=== PATIENT | male | born 1970 | race Caucasian/White ===

== ENCOUNTER 2016-04-23 13:55 | Emergency (ER) | payer BC ==
[2016-04-23 14:24] VITALS: BP 162/106
[2016-04-23] MEDS ORDERED: Albuterol/Ipratropium NEB.SOL* Albuterol 2.5 MG/Ipratropium 0.5 MG 3 ML INH ONE (15:01)
--- NOTE | 2016-04-23 15:29 | RAD ---
INDICATION: Cough for one month. COMPARISON: Comparison is made with a prior chest x-ray study from December 31, 2009. TECHNIQUE: Dual-energy PA and lateral views of the chest were obtained. FINDINGS: The heart is within normal limits in size. Mediastinal and hilar contours appear within normal limits. The lungs are clear. No pleural effusion is present. IMPRESSION: NO EVIDENCE FOR ACTIVE CARDIOPULMONARY DISEASE.
--- NOTE | 2016-04-23 15:38 | UC ---
Respiratory Complaint HPI - HPI Summary HPI Summary: 46 male presents today with daughter complaining of a cough that he has had for the past month. Patient states he has had a productive cough that he can't seem to get rid of. It gets worse when laying down. He denies any hemoptysis. He states he would produce green to yellow colored sputum however lately it has been clear. He states he sometimes has cold sweats during the night but has not taken his temperature. He admits to nasal congestion with some sinus pressure/ congestion however denies sore throat, headache, SOB, difficulty breathing, headache, and chest pain. Does state he loses his voice intermittently and describes it to be "raspy" in sound. 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 He has tried taking NyQuil and Mucinex OTC which he states helps him sleep. Denies edema. - History of Current Complaint Chief Complaint: UCRespiratory Stated Complaint: COUGH,SORE THROAT Time Seen by Provider: 04/23/16 14:40 Hx Obtained From: Patient Onset/Duration: Sudden Onset, Lasting Weeks, Still Present Timing: Constant - with episodes worse than others Severity Initially: Mild Severity Currently: Mild Character: Sputum Description: - green to yellow to clear in color Aggravating Factors: Exertion, Recumbent Position Alleviating Factors: OTC Meds, Upright Position Associated Signs And Symptoms: Positive: Fever, Chills, URI, Nasal Congestion, Sinus Discomfort. Negative: Dyspnea, Wheezing, Hemoptysis, Calf Pain, Calf Swelling, Edema - Allergies/Home Medications Allergies/Adverse Reactions: Allergies Allergy/AdvReac Type Severity Reaction Status Date / Time No Known Allergies Allergy Verified 04/23/16 14:18 Home Medications: Home Medications Ascorbic Acid TAB* [Vitamin C TAB*] 1,000 mg PO DAILY 04/23/16 [History Confirmed 04/23/16] PMH/Surg Hx/FS Hx/Imm Hx Previously Healthy: Yes Endocrine History Of: Denies: Diabetes Cardiovascular History Of: Denies: Hypertension, Congestive Heart Failure GI/ History Of: Denies: Renal Disease - Surgical History Surgical History: None - Family History Known Family History: Positive: Hypertension - Social History Alcohol Use: Occasionally Alcohol Amount: 2 beers daily Substance Use Type: Excessive Caffeine Smoking Status (MU): Light Every Day Tobacco Smoker Type: Cigarettes Amount Used/How Often: 6-7daily Length of Time of Smoking/Using Tobacco: 5 years Review of Systems Constitutional: Fever, Chills, Fatigue Skin: Negative Eyes: Negative ENT: Nasal Discharge Respiratory: Cough Cardiovascular: Negative Gastrointestinal: Negative Genitourinary: Negative Motor: Negative Neurovascular: Negative Musculoskeletal: Negative Neurological: Negative Psychological: Negative All Other Systems Reviewed And Are Negative: Yes Physical Exam Triage Information Reviewed: Yes Appearance: Well-Appearing - appears fatigued, No Pain Distress, Well-Nourished Vital Signs: Initial Vital Signs Temp 97.2 F 04/23/16 14:19 Pulse 78 04/23/16 14:19 Resp 18 04/23/16 14:19 BP 162/106 04/23/16 14:19 Pulse Ox 97 04/23/16 14:19 Blood pressure slightly elevated, patient says it usually is around that and is having it followed up Vital Signs Reviewed: Yes Eyes: Positive: Conjunctiva Clear ENT: Positive: Hearing grossly normal, Pharynx normal, Nasal congestion, Nasal drainage, TMs normal, Muffled/hoarse voice - sounds raspy and sometimes looses voice while speaking. Negative: Tonsillar swelling, Tonsillar exudate Dental: Positive: Gross Decay/Caries @ Neck: Positive: Supple, Nontender, No Lymphadenopathy Respiratory: Positive: Chest non-tender, Lungs clear - productive cough during exam, No respiratory distress, No accessory muscle use, Decreased breath sounds - left side more than right. Negative: Crackles, Rhonchi, Stridor, Wheezing Cardiovascular: Positive: RRR, No Murmur, Pulses Normal, Brisk Capillary Refill Abdominal Exam: Normal Musculoskeletal Exam: Normal Musculoskeletal: Positive: No Edema Neurological Exam: Normal Psychological Exam: Normal Skin Exam: Normal UC Diagnostic Evaluation - Laboratory O2 Sat by Pulse Oximetry: 97 - Radiology Xray Interpretation: No Acute Changes - NO EVIDENCE FOR ACTIVE CARDIOPULMONARY DISEASE. Radiology Interpretation Completed By: Radiologist Re-Evaluation - Re-Evaluation First Eval Re-Evaluation Time: 15:35 Change: Improved - some relief after nebulizer treatment Respiratory Course/Dx - Course Course Of Treatment: a chest x-ray was ordered due to duration of symptoms and exposure to asbestosis and other airborne materials at work. it was negative. patient was given a nebulizer treatment which did give him some relief and breath sounds improved slightly. patient will be given an antibiotic to see if it helps relieve infection. he was also given albuterol refills to use with his nebulizer machine at home told to continue taking OTC measures and to try saline rinses. follow up with PCP is recommended. - Differential Dx/Diagnosis Differential Diagnosis/HQI/PQRI: Bronchitis, CHF, Laryngitis, Sinusitis, Other - upper respiratory infection, pneumonia Provider Diagnoses: Upper Respiratory Infection, Bronchitis Discharge - Discharge Plan Condition: Stable Disposition: HOME Prescriptions: Albuterol 2.5MG/3ML (0.083%)* [Ventolin 2.5 MG/3 ML NEB.CE*] 2.5 mg INH Q6H # 30 sunny Azithromycin TAB* [Zithromax TAB (Z-SUNNY) 250 mg #6 tabs] 2 tab PO .TODAY, THEN 1 DAILY #1 sunny Patient Education Materials: Upper Respiratory Infection (ED), Acute Bronchitis (ED) Referrals: Freddie Griffin ASSISTANT ASSOCIATE FULL PROFESSOR [Primary Care Provider] -
== END 2016-04-23 15:54 | disposition home or self-care (01) ==
LOC: UCCORT 13:55
DX: R06.9 Unspecified abnormalities of breathing (principal); J40 Bronchitis, not specified as acute or chronic; F17.210 Nicotine dependence, cigarettes, uncomplicated
CPT/HCPCS: 71020; 99212; A9270-GY; G0463

== ENCOUNTER 2017-03-09 13:25 | Observation (INO) | payer BC ==
[2017-03-09 15:33] LABS: Hematocrit 48 % (42-52); Hemoglobin 16.2 g/dl (14.0-18.0); Mean Corpuscular HGB Conc 34 g/dl (31-36); Mean Corpuscular Hemoglobin 30 pg (27-31); Mean Corpuscular Volume 89 fL (80-94); Mean Platelet Volume 8 um3 (7.4-10.4); Red Blood Count 5.37 10^6/ul (4.0-5.4); Red Cell Distribution Width 14 % (10.5-15); White Blood Count 10.8 10^3/ul (3.5-10.8)
[2017-03-09 15:51] LABS: Albumin 4.4 g/dL (3.2-5.2); Calcium 9.4 mg/dL (8.6-10.3); EGFR African American 86.9 (>60); EGFR Non-African American 67.6 (>60); Globulin 2.9 g/dL (2-4); Magnesium 2.2 mg/dL (1.9-2.7); Potassium 4.5 mmol/L (3.5-5.0); Total Bilirubin 0.5 mg/dL (0.2-1.0); Total Protein 7.3 g/dL (6.4-8.9)
[2017-03-09 15:53] LABS: Troponin I 0.01 ng/mL (<0.04)
[2017-03-09 16:31] LABS: TSH (Thyroid Stimulating Horm) 0.78 mcIU/mL (0.34-5.60)
[2017-03-09] MEDS ORDERED: HYDROcodone/ACETAMIN 5-325 MG* 1 TAB PO ONE (16:57)
--- NOTE | 2017-03-09 17:49 | RAD ---
Indication: Fall with dorsal LEFT foot pain. Comparison: No relevant prior exams available on [place] [facility] [place]. Technique: AP, lateral, and oblique views LEFT foot. Report: Significant repetitive pattern artifact from the patient's sock. Negative for fracture or malalignment. Small subchondral cysts noted at the medial head of the first proximal phalanx. Unremarkable soft tissue contours. IMPRESSION: No fracture or malalignment evident. Artifact from the patient's sock reduces image quality. Correlate with clinical assessment and consider repeat exam with sock moved deemed appropriate.
--- NOTE | 2017-03-09 17:51 | RAD ---
INDICATION: RIGHT elbow pain following injury. COMPARISON: No relevant prior exams available on the [facility] PACS for comparison. TECHNIQUE: AP, lateral, and oblique views RIGHT elbow. REPORT AND IMPRESSION: Normal articular alignment. Negative for effusion or fracture. Mild dorsal soft tissue swelling.
[2017-03-09 18:21] LABS: Urine Bilirubin Negative (Negative); Urine Glucose Negative (Negative); Urine Nitrite Negative (Negative)
[2017-03-09] MEDS ORDERED: Ondansetron INJ* 2 MG/ML VIAL IV PRN (20:13)
[2017-03-09] MEDS ORDERED: Acetaminophen TAB* 325 MG PO PRN (20:13)
--- NOTE | 2017-03-09 20:55 | RAD ---
Indication: Seizure yesterday. History of syncopal episodes. Comparison: No relevant prior exams available on the [facility] PACS for comparison. Technique: Noncontrast CT vertex of skull through foramen magnum. Report: The sulci, ventricles, and basal cisterns are normal for age. [place] matter white matter differentiation is preserved without evidence for edema. No intra or extra axial hemorrhage, mass, or fluid collection detected. Unremarkable visualized orbital contents. Unremarkable calvarium and skull base. Unremarkable scalp. Mild retained secretions in the RIGHT maxillary sinus. IMPRESSION: Negative unenhanced head CT.
--- NOTE | 2017-03-09 21:09 | RAD ---
INDICATION: Seizure. COMPARISON: September 15, 2012 TECHNIQUE: Multidetector CT images foramen magnum to lung apices without contrast. Multiplanar reformation. REPORT: Normal vertebral alignment accounting for exam positioning without spondylolisthesis or subluxation at any level. Negative for cervical vertebral body or posterior element fracture. Negative for paravertebral hematoma. Multilevel degenerative spondylosis and mild facet joint osteoarthritis. At C5-C6 uncinate process spurring results in moderate bilateral foraminal stenosis. At C6-C7 dorsal disc osteophyte complex results in mild acquired central canal stenosis. IMPRESSION: No CT evidence for traumatic cervical spine injury.
--- NOTE | 2017-03-09 21:13 | RAD ---
Indication: Syncopal episode. Associated LEFT ankle injury; caught in a stool. Comparison: No relevant prior exams available on the [facility] PACS for comparison. Technique: AP and crosstable lateral views LEFT ankle. Report: Normal alignment at the talocrural, subtalar, and transverse tarsal joints. No malleoli fracture evident. Unexplained coronal oriented lucency at the proximal metaphysis of the third metatarsal reference the lateral view. Mild nonfocal soft tissue swelling. IMPRESSION: 1. Negative for fracture or malalignment about the ankle. 2. Unexplained coronal lucency at the proximal metaphysis of the third metatarsal. Correlate with clinical assessment and consider radiographs of the foot for further evaluation if deemed appropriate.
--- NOTE | 2017-03-09 21:55 | ED ---
Rosa Godinez Gabriel scribed for Anshu Young MD on 03/09/17 at 1459 . Neurological HPI - HPI Summary HPI Summary: This patient is a 47 year old M presenting to [facility] s/p a seizure last night. The patient rates the pain 6/10 in severity. Patient reports contusion on head, and foot/elbow pain. Patient was at a bar siting on a stool when he had a seizure. He did not feel in coming on nor does he remember anything but his friend saw it and reported seeing him thrash. Patient is unable to bear weight due to the pain on the top of his left foot. He reports similar episodes a year ago that didnt include any thrashing so he did not see a doctor. - History of Current Complaint Chief Complaint: EDSeizure Stated Complaint: SEIZURE 03/08-PAIN IN LT FOOT & RT ELBOW Time Seen by Provider: 03/09/17 14:35 Hx Obtained From: Patient Onset/Duration: Sudden Onset, Resolved Timing: Sudden Onset Onset Severity: Moderate Current Severity: None Seizure Severity: Moderate Number of Seizures: 1 Pain Intensity: 6 Pain Scale Used: 0-10 Numeric Syncope Context: Witnessed Associated Signs and Symptoms: Positive: Nothing - foot pain, elbow pain, contusion - Allergy/Home Medications Allergies/Adverse Reactions: Allergies Allergy/AdvReac Type Severity Reaction Status Date / Time No Known Allergies Allergy Verified 04/23/16 14:18 PMH/Surg Hx/FS Hx/Imm Hx Previously Healthy: No Endocrine/Hematology History: Denies: Hx Diabetes, Hx Systemic Lupus Erythematosus Cardiovascular History: Denies: Hx Congestive Heart Failure, Hx Hypertension History: Denies: Hx Dialysis, Hx Renal Disease Musculoskeletal History: Denies: Hx Rheumatoid Arthritis - Cancer History Hx Chemotherapy: No Infectious Disease History: No Infectious Disease History: Denies: Traveled Outside the [place] in Last 30 Days - Family History Known Family History: Positive: Hypertension - Social History Alcohol Use: Daily Alcohol Amount: 2 beers daily Substance Use Type: Reports: None Smoking Status (MU): Light Every Day Tobacco Smoker Type: Cigarettes Amount Used/How Often: 6-7daily Length of Time of Smoking/Using Tobacco: 5 years Review of Systems Positive: Other - pain in left elbow and top of right foot w/ contusion on head Neurological: Other - seizure All Other Systems Reviewed And Are Negative: Yes Physical Exam - Summary Physical Exam Summary: Appearance: The patient is well-nourished in no acute distress and in no acute pain. Skin: The skin is warm and dry and skin color reflects adequate perfusion. HEENT: The head is normocephalic and atraumatic. The pupils are equal and reactive. The conjunctivae are clear and without drainage. Nares are patent and without drainage. Mouth reveals moist mucous membranes and the throat is without erythema and exudate. The external ears are intact. The ear canals are patent and without drainage. The tympanic membranes are intact. Neck: the neck is supple with full range of motion and non-tender. There are no carotid bruits. There is no neck vein distension. Respiratory: Chest is non-tender. Lungs are clear to auscultation and breath sounds are symmetrical and equal. Cardiovascular: Heart is regular rate and rhythm. There is no murmur or rub auscultated. There is no peripheral edema and pulses are symmetrical and equal. Abdomen: The abdomen is soft and non-tender. There are normal bowel sounds heard in all four quadrants and there is no organomegaly palpated. Musculoskeletal: There is no back tenderness noted. Extremities are non-tender with full range of motion. There is good capillary refill. There is no peripheral edema or calf tenderness elicited. Right elbow is mildly erythematous and tender. Right foot is tender distally on the dorsum Neurological: Patient is alert and oriented to person, place and time. The patient has symmetrical motor strength in all four extremities. Cranial nerves are grossly intact. Deep tendon reflexes are symmetrical and equal in all four extremities. Psychiatric: The patient has an appropriate affect and does not exhibit any anxiety or depression. Triage Information Reviewed: Yes Vital Signs On Initial Exam: Initial Vitals Temp Pulse Resp BP Pulse Ox 98.6 F 110 16 121/77 92 03/09/17 13:26 03/09/17 13:26 03/09/17 13:26 03/09/17 13:26 03/09/17 13:26 Vital Signs Reviewed: Yes Diagnostics - Vital Signs Vital Signs Temp Pulse Resp BP Pulse Ox 03/09/17 13:26 98.6 F 110 16 121/77 92 - Laboratory Lab Results: Lab Results 03/09/17 03/09/17 03/09/17 Range/Units 15:20 15:20 15:20 WBC 10.8 (3.5-10.8) 10^3/ul RBC 5.37 (4.0-5.4) 10^6/ul Hgb 16.2 (14.0-18.0) g/dl Hct 48 (42-52) % MCV 89 (80-94) fL MCH 30 (27-31) pg MCHC 34 (31-36) g/dl RDW 14 (10.5-15) % Plt Count 281 (150-450) 10^3/ul MPV 8 (7.4-10.4) um3 Neut % (Auto) 73.1 (38-83) % Lymph % (Auto) 17.3 L (25-47) % Emmons % (Auto) 8.6 (1-9) % Eos % (Auto) 0.6 (0-6) % Baso % (Auto) 0.4 (0-2) % Absolute Neuts (auto) 7.9 H (1.5-7.7) 10^3/ul Absolute Lymphs (auto) 1.9 (1.0-4.8) 10^3/ul Absolute Monos (auto) 0.9 H (0-0.8) 10^3/ul Absolute Eos (auto) 0.1 (0-0.6) 10^3/ul Absolute Basos (auto) 0 (0-0.2) 10^3/ul Absolute Nucleated RBC 0.02 10^3/ul Nucleated RBC % 0.2 Sodium 141 (133-145) mmol/L Potassium 4.5 (3.5-5.0) mmol/L Chloride 104 (101-111) mmol/L Carbon Dioxide 28 (22-32) mmol/L Anion Gap 9 (2-11) mmol/L BUN 15 (6-24) mg/dL Creatinine 1.15 (0.67-1.17) mg/dL Est GFR ( Amer) 86.9 (>60) Est GFR (Non-Af Amer) 67.6 (>60) BUN/Creatinine Ratio 13.0 (8-20) Glucose 97 (70-100) mg/dL Lactic Acid 2.1 H* (0.5-2.0) mmol/L Calcium 9.4 (8.6-10.3) mg/dL Magnesium 2.2 (1.9-2.7) mg/dL Total Bilirubin 0.50 (0.2-1.0) mg/dL AST 19 (13-39) U/L ALT 30 (7-52) U/L Alkaline Phosphatase 41 (34-104) U/L Troponin I 0.01 (<0.04) ng/mL Total Protein 7.3 (6.4-8.9) g/dL Albumin 4.4 (3.2-5.2) g/dL Globulin 2.9 (2-4) g/dL Albumin/Globulin Ratio 1.5 (1-3) TSH 0.78 (0.34-5.60) mcIU/mL Urine Color Urine Appearance Urine pH (5-9) Ur Specific [place] (1.010-1.030) Urine Protein (Negative) Urine Ketones (Negative) Urine Blood (Negative) Urine Nitrate (Negative) Urine Bilirubin (Negative) Urine Urobilinogen (Negative) Ur Leukocyte Esterase (Negative) Urine Glucose (Negative) Serum Alcohol 46 H (<10) mg/dL 03/09/17 Range/Units 17:55 WBC (3.5-10.8) 10^3/ul RBC (4.0-5.4) 10^6/ul Hgb (14.0-18.0) g/dl Hct (42-52) % MCV (80-94) fL MCH (27-31) pg MCHC (31-36) g/dl RDW (10.5-15) % Plt Count (150-450) 10^3/ul MPV (7.4-10.4) um3 Neut % (Auto) (38-83) % Lymph % (Auto) (25-47) % Emmons % (Auto) (1-9) % Eos % (Auto) (0-6) % Baso % (Auto) (0-2) % Absolute Neuts (auto) (1.5-7.7) 10^3/ul Absolute Lymphs (auto) (1.0-4.8) 10^3/ul Absolute Monos (auto) (0-0.8) 10^3/ul Absolute Eos (auto) (0-0.6) 10^3/ul Absolute Basos (auto) (0-0.2) 10^3/ul Absolute Nucleated RBC 10^3/ul Nucleated RBC % Sodium (133-145) mmol/L Potassium (3.5-5.0) mmol/L Chloride (101-111) mmol/L Carbon Dioxide (22-32) mmol/L Anion Gap (2-11) mmol/L BUN (6-24) mg/dL Creatinine (0.67-1.17) mg/dL Est GFR ( Amer) (>60) Est GFR (Non-Af Amer) (>60) BUN/Creatinine Ratio (8-20) Glucose (70-100) mg/dL Lactic Acid (0.5-2.0) mmol/L Calcium (8.6-10.3) mg/dL Magnesium (1.9-2.7) mg/dL Total Bilirubin (0.2-1.0) mg/dL AST (13-39) U/L ALT (7-52) U/L Alkaline Phosphatase (34-104) U/L Troponin I (<0.04) ng/mL Total Protein (6.4-8.9) g/dL Albumin (3.2-5.2) g/dL Globulin (2-4) g/dL Albumin/Globulin Ratio (1-3) TSH (0.34-5.60) mcIU/mL Urine Color Yellow Urine Appearance Clear Urine pH 5.0 (5-9) Ur Specific [place] 1.019 (1.010-1.030) Urine Protein Negative (Negative) Urine Ketones Trace H (Negative) Urine Blood Negative (Negative) Urine Nitrate Negative (Negative) Urine Bilirubin Negative (Negative) Urine Urobilinogen Negative (Negative) Ur Leukocyte Esterase Negative (Negative) Urine Glucose Negative (Negative) Serum Alcohol (<10) mg/dL Result Diagrams: 03/09/17 15:20 03/09/17 15:20 Lab Statement: Any lab studies that have been ordered have been reviewed, and results considered in the medical decision making process. - Radiology Foot Xray Radiology Interpretation Completed By: Radiologist - No fracture or malalignment evident. Artifact from the patient's sock reduces image quality. Correlate with clinical assessment and consider repeat exam with sock moved deemed appropriate. ED physician has reviewed this radiology report. Elbow Xray Radiology Interpretation Completed By: Radiologist - Normal articular alignment. Negative for effusion or fracture. Mild dorsal soft tissue swelling. 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 Harrell had a worrisome sounding episode that could be seizure or syncope with seizure-like activity. His W/U is negative so far and he is being admitted to the hospitalist service. - Diagnoses Provider Diagnoses: Syncope and collapse Discharge - Discharge Plan Condition: Stable Disposition: ADMITTED TO [facility] documentation as recorded by the Rosa merchant Gabriel accurately reflects the service I personally performed and the decisions made by , Anshu Young MD.
[2017-03-10] MEDS: NS 0.9% 1000 ML* 1,000 ML IV SCH ×2 (00:22→12:59)
--- NOTE | 2017-03-10 02:49 | HP ---
CC: Freddie Griffin NP * HISTORY AND PHYSICAL: DATE OF ADMISSION: 03/09/17 PRIMARY CARE PROVIDER: Freddie Griffin NP ATTENDING PHYSICIAN WHILE IN THE HOSPITAL: Dr. Kenny Skinner * (report dictated by Heriberto Vo NP) CHIEF COMPLAINT: Syncope. HISTORY OF PRESENT ILLNESS: Mr. Harrell is a 47-year-old male patient, who last night was at a bar. He had an episode where he was staring off. He was not talking, he was not responding. He started to have quivering in his lips and shaking in his lips and that shaking lasted about 30 seconds. However, for about 20 to 30 minutes thereafter, he was very confused. He does not know where he was. He does not recall anything. The last thing he recalls was getting into his friend's vehicle and going home and getting undressed and going to bed at night. He denied having any symptoms prior to it. He states the last thing he remembers is talking to his friend and he was sitting down and he fell backwards out of the chair. He denied having chest pain prior to or after. Denied having any palpitations or fluttering in the chest. Denied having any recent shortness of breath. He states he has been having some lower back pain that has been going on for several weeks now. He denied having any nausea or vomiting. No diarrhea. He denied any dysuria, no frequency. Again, there is question of seizure-like activity. He did not have any incontinence of urine or stool. He was concerned because of the episode today and he came in to the ER. Denied any drug use last night and he say he did have 8 to 10 beers. PAST MEDICAL HISTORY: Significant for hypertension. PAST SURGICAL HISTORY: Denied. MEDICATIONS: He says currently he is not on any medications. He has been off medications for the last 6 months. ALLERGIES: He is not allergic to any medications. FAMILY HISTORY: Mother's history was reviewed, noncontributory. He specifically denied the mother having any heart disease, strokes, or cancer. His father did have CAD. SOCIAL HISTORY: He does smoke occasionally when he is drinking. He says he drinks in the weekend. He did drink 8 to 10 beers last night. Denied any recreational drug use. He is a mon. REVIEW OF SYSTEMS: There is no documented fever. He denied having any significant weight change. There was no double vision. He denies having any ear discharge. He denies having any rhinorrhea. No sore throat. No thyroid enlargement. Denied having any chest pain. There was no orthopnea, no nocturnal dyspnea. There was no abdominal pain. No nausea. There was no vomiting. No dysuria, there was no frequency. There was a question of seizure and there was loss of consciousness. Review of 14 systems completed, all others negative. PHYSICAL EXAMINATION GENERAL: At this time, Mr. Harrell is a 47-year-old male patient. He is morbidly obese. He is sitting in the ED stretcher. He does not appear to be in any acute distress. VITAL SIGNS: Blood pressure 132/87, pulse 81, respirations 17, O2 sat 95%, temperature 98.6. HEENT: Head: Atraumatic. Eyes: EOMs intact. Sclerae anicteric, not pale. Throat: Oral mucosa appears to be moist. No oropharyngeal erythema. NECK: Supple. LUNGS: Clear to auscultation. No wheezes, rales, or rhonchi. HEART: Sounds S1, S2. Regular rate and rhythm. No murmurs, rubs, or gallops. ABDOMEN: Soft, flat, nontender. Bowel sounds are present. EXTREMITIES: Pulses were 2+ throughout. His left foot is painful on the top part of his foot and in the ankle with any type of manipulation of the ankle, he has significant amount of pain. He says that when he went down, his friends told him that his foot got caught in the bar rail when he went down. Distal CSM checks are intact. He is moving his upper extremities with 5/5 strength. NEUROLOGIC: The patient is awake, he is alert, he is oriented x3. His speech is clear. Tongue is midline. Charging Plug Placer are equal. No gross focal deficits. SKIN: Intact. DIAGNOSTIC STUDIES/LAB DATA: WBC 10.8, RBC of 5.37, hemoglobin of 16.2, hematocrit of 48, platelet count of 281. Sodium 141, potassium 4.5, chloride of 104, bicarb 28, BUN 15, creatinine 1.15, glucose 97, lactate 2.1, calcium 9.4 , mag 2.2. Total bili is 0.5, AST 19, ALT 30. His TSH was 0.78. Albumin of 4.4. Urine showed trace ketones. He had an elbow x-ray today, showed normal articular alignment, negative for fusion or fracture. He had a foot x-ray obtained today, showed no fracture or malalignment other than artifact from the patient's sock reduces image quality. Correlate with clinical assessment and consider repeat exam with socks removed deemed appropriate. He did have an EKG obtained today, no previous for comparison, does show a sinus rhythm, rate of 86, no ST elevations or T-wave inversions. He does appear to have intraventricular conduction delay. Old medical records were reviewed. ASSESSMENT AND PLAN: Mr. Harrell is a 47-year-old male patient coming into the ED today with complaints of a syncopal episode versus seizure. He will be admitted under observation status for: 1. Syncope versus seizure. At this point, I will get an echo. I did touch base with Dr. Neumann. We will get an EEG. Check a CT of the brain, CT of the neck because of the fall. Carotid ultrasound. We will get orthostatic blood pressures and place the patient on telemetry and do another set of cardiac enzymes since the first set was negative. We will continue to follow him closely. 2. Hypertension. Blood pressure is stable here. He can follow up with his primary. 3. Left ankle pain. He did get a foot x-ray, which showed no fracture. I am getting a dedicated ankle x-ray. If it becomes an issue, we could consider getting an Ortho consult, but it does appear that he may have a sprain, but I am going to get the images. If there are any fractures, obviously we will get Ortho consult. 4. DVT prophylaxis. He will be placed on SCDs. 5. Code status. Full code. 6. Fluids, electrolytes, and nutrition. He can have a regular diet. TIME SPENT: On the admission 60 minutes, greater than half the time spent face- to- face with the patient obtaining my history and physical, other half the time spent going over the plan of care with the patient and implementing plan of care. I did discuss plan of care with my attending, Dr. Skinner; he is in agreement. HERIBERTO VO NP [id number]/[facility] #: [id number] [facility] HOSPITALLeonel
[2017-03-10 05:07] LABS: Hematocrit 43 % (42-52); Hemoglobin 14.9 g/dl (14.0-18.0); Mean Corpuscular HGB Conc 35 g/dl (31-36); Mean Corpuscular Hemoglobin 31 pg (27-31); Mean Corpuscular Volume 89 fL (80-94); Mean Platelet Volume 8 um3 (7.4-10.4); Red Blood Count 4.85 10^6/ul (4.0-5.4); Red Cell Distribution Width 14 % (10.5-15); White Blood Count 8.5 10^3/ul (3.5-10.8)
[2017-03-10 05:27] LABS: BUN/Creatinine Ratio 17.8 (8-20); EGFR Non-African American 78.5 (>60)
[2017-03-10] MEDS: oxyCODONE/Acetamin 5/325 MG* TAB PO PRN ×2 (07:52→19:57)
--- NOTE | 2017-03-10 09:10 | RAD ---
Indication: Syncope. Duplex Doppler sonography of the carotid arteries was performed. Right common carotid artery demonstrates intimal wall thickening. No plaque is noted. Peak systolic velocity of the distal right common carotid arteries 86 cm/s. Peak systolic velocity of the right internal carotid artery is 98 cm/s. The ICA/CC ratio is 1.13. Right vertebral artery demonstrates antegrade flow. The left common carotid artery demonstrates intimal wall thickening. Peak systolic velocity of the distal left common carotid artery is 92 cm/s. Peak systolic velocity of the left internal carotid artery is 97 cm/s. The ICA/CC ratio is 1.06. Left vertebral artery demonstrates antegrade flow. IMPRESSION: No evidence of hemodynamically significant stenosis in either internal carotid artery with intimal wall thickening.
--- NOTE | 2017-03-10 11:08 | PN ---
Subjective Date of Service: 03/10/17 Interval History: Patient seen and examined at bedside. Patient states he does not normally drink as much as he did on Friday night. He reports that he fell off a bar stool witnessed by bystanders and had convulsions. Episode lasted ~20 minutes. Patient does not recall anything but being driven home later that evening my his friend. Family History: Unchanged from Admission Social History: Unchanged from Admission Past Medical History: Unchanged from Admission Objective Active Medications: Acetaminophen (Tylenol Tab*) 650 mg PO Q4H PRN Sodium Chloride (Ns 0.9% 1000 Ml*) 1,000 mls @ 125 mls/hr IV PER RATE EDISON Ondansetron HCl (Zofran Inj*) 4 mg IV Q6H PRN Oxycodone/Acetaminophen (Percocet 5/325 Tab*) 2 tab PO Q4H PRN Vital Signs Temp Pulse Resp BP Pulse Ox 98.3 F 75 16 136/90 95 03/10/17 07:53 03/10/17 07:53 03/10/17 08:00 03/10/17 07:53 03/10/17 07:53 Oxygen Devices in Use Now: None Appearance: sitting up in bed, NAD Eyes: No Scleral Icterus, PERRLA Ears/Nose/Mouth/Throat: NL Teeth, Lips, Gums Neck: NL Appearance and Movements; NL JVP Respiratory: Symmetrical Chest Expansion and Respiratory Effort Cardiovascular: NL Sounds; No Murmurs; No JVD, RRR Abdominal: NL Sounds; No Tenderness; No Distention Extremities: No Edema Skin: No Rash or Ulcers Neurological: Alert and Oriented x 3, NL Muscle Strength and Tone Lines/Tubes/Other Access: Clean, Dry and Intact Peripheral IV Result Diagrams: 03/10/17 04:56 03/10/17 04:56 Additional Lab and Data: . Assess/Plan/Problems-Billing Patient is a 47 y/o M w/ hx of HTN who presented to the ER 03/09 after a syncopal episode while intoxicated early in the AM 03/09. When he presented hours later PEARL was still 0.04%. He also c/o of L ankle pain. - Patient Problems (1) Syncope, convulsive Comment: Syncope vs seizure. The patient states he has an episode last year while coughing that sounds like a vagal episode. Carotid doppler negative. Echo and EEG pending but seems more likely this is secondary to alcohol intoxication. (2) Alcohol intoxication Comment: Suspect episode related to intoxication which is not typical for him. (3) Left ankle sprain Comment: Ankle and foot xray negative for any acute fracture. Continue PRN percocet and Ibuprofen. (4) HTN (hypertension) Comment: BP stable and controlled; Not on any medication. (5) DVT prophylaxis Comment: Low risk; SCDs only. (6) Full code status Status and Disposition: OBV for syncope vs seizure. Plan to discharge home when stable.
[2017-03-10] MEDS ORDERED: Ibuprofen TAB* 600 MG PO PRN (11:09)
--- NOTE | 2017-03-10 12:04 | ECHO ---
Patient: KARLO VICENTE [facility] Rec#: [id number] : 1970 Date: 03/10/2017 Age: 47y Height: 177.8 cm / 70.0 in Weight: 112.49 kg / 247.9 lbs Sex: M BSA: 2.29 Room#: 440 Admit Date#: 03/09/2017 Type: Inpatient Referring: Heriberto Vo NP Reading: Conner Ribeiro MD Circuit Manager: Liv Araya,DEEP,RDMS CC: Freddie Griffin NP Transthoracic Echocardiogram Indication: Syncope BP: 132/81 HR: 71 Rhythm: NSR Findings History: HTN Technical Comments: The study quality is good. The study is technically limited due to poor parasternal windows. Left Ventricle: The left ventricular chamber size is normal. Mild concentric left ventricular hypertrophy is observed. Global left ventricular wall motion and contractility are within normal limits. Left ventricular systolic function is at the lower limits of normal. The estimated ejection fraction is 50-55%. There is no consistent Doppler evidence of clinically significant diastolic dysfunction. Left Atrium: The left atrial chamber size is normal. Right Ventricle: The right ventricular chamber size and systolic function are within normal limits. Right Atrium: The right atrial cavity size is normal. Aortic Valve: There is no evidence of aortic valve thickening. Systolic excursion of the aortic valve is normal. There is a trace of aortic regurgitation. There is no evidence of aortic stenosis. Mitral Valve: The mitral valve leaflets are mildly thickened. There is a trace of mitral regurgitation. There is no evidence of mitral stenosis. Tricuspid Valve: The tricuspid valve leaflets are normal. There is trace tricuspid regurgitation. Pulmonic Valve: There is no evidence of pulmonic valve thickening. There is no evidence of pulmonic regurgitation. Pericardium: There is no significant pericardial effusion. Aorta: The ascending aorta is not well visualized. There is no dilatation of the aortic arch. There is mild dilatation of the aortic root. Pulmonary Artery: The main pulmonary artery is not well visualized. Venous: The inferior vena cava appears normal in size. There is a greater than 50% respiratory change in the inferior vena cava dimension. Conclusions Mild concentric left ventricular hypertrophy is observed. Global left ventricular wall motion and contractility are within normal limits. Left ventricular systolic function is at the lower limits of normal. The estimated ejection fraction is 50-55%. The right ventricular chamber size and systolic function are within normal limits. There is a trace of aortic regurgitation. There is a trace of mitral regurgitation. There is trace tricuspid regurgitation. There is no significant pericardial effusion. Measurements Name Value Normal Range RVIDd (AP) 2D 3.2 cm (0.9 - 2.6) RVDdMajor (2D) 3.4 cm (2.2 - 4.4) RAd ISD 4CH 4.6 cm (3.4 - 4.9) RA (A4C)W 3.6 cm (2.9 - 4.6) IVSd (2D) 1.3 cm (0.6 - 1) LVPWd (2D) 1 cm (0.6 - 1) LVIDd (2D) 4.7 cm (3.6 - 5.4) LVIDs (2D) 3.7 cm - LV FS (2D) 21 % (25 - 45) Aortic Annulus 2.3 cm (1.4 - 2.6) Ao root diameter (2D) 3.7 cm (2.1 - 3.5) Aortic arch 2.2 cm (1.8 - 3.4) LA dimension (AP) 2D 3.4 cm (2.3 - 3.8) LAd ISD 4CH 4.2 cm (2.9 - 5.3) LA ISD 4CH W 3.8 cm (2.5 - 4.5) Name Value Normal Range LA ESV SP 4CH (A/L) 33.92 ml - LA ESV SP 2CH (A/L) 52.77 ml - LA ESV BP (A/L) 47.87 ml - LA ESV BP (A/L) index 21 ml/m2 - LA ESV SP 4CH (MOD) 31.21 ml - LA ESV SP 2CH (MOD) 49.16 ml - Name Value Normal Range MV E-wave Vmax 0.8 m/sec - MV deceleration time 187 msec - MV A-wave Vmax 0.5 m/sec - MV E:A ratio 1.6 ratio - P. vein S-wave Vmax 0.4 m/sec - P. vein D-wave Vmax 0.4 m/sec - P. vein S:D Vmax ratio 1.1 ratio - P. vein A-wave duration 90 msec - LV septal e' Vmax 0.08 m/sec - LV lateral e' Vmax 0.11 m/sec - LV E:e' septal ratio 10 ratio - LV E:e' lateral ratio 7.3 ratio - Name Value Normal Range AV Vmax 1.4 m/sec - AV VTI 29.3 cm - AV peak gradient 8 mmHg - AV mean gradient 5.1 mmHg - LVOT Vmax 1.2 m/sec - LVOT VTI 24.8 cm - LVOT peak gradient 6 mmHg - LVOT mean gradient 2.9 mmHg - TRISHA Vmax 0.7 m/sec - Name Value Normal Range RAP 8 mmHg - IVC diameter 1.6 cm - Name Value Normal Range PV Vmax 0.7 m/sec - PV peak gradient 2 mmHg -
--- NOTE | 2017-03-10 17:51 | RAD ---
HISTORY: Left foot pain COMPARISONS: March 09, 2017 VIEWS: 4, Frontal, lateral, and oblique views of the left foot FINDINGS: BONE DENSITY: Normal. BONES: There is a transverse nondisplaced fracture of the base of the third metatarsal with articular extension. The Lisfranc interval is normal. JOINTS: There is mild osteoarthritis of the first MTP joint ALIGNMENT: There is no dislocation. SOFT TISSUES: Unremarkable. OTHER FINDINGS: None. IMPRESSION: 1. NONDISPLACED FRACTURE OF THE BASE OF THE THIRD METATARSAL. 2. OSTEOARTHRITIS OF THE FIRST MTP JOINT
--- NOTE | 2017-03-10 18:16 | PN ---
Hospitalist Progress Note Date of Service: 03/10/17 HOSPITALIST ADDENDUM: Reviewed Foot xray and given lucency seen on ankle X-ray and poor intial foot X- ray, Foot X-ray redone. 3rd metatarsal fracture seen. Discussed case with Dr. Sanchez on-call who recommended CAM boot, partial weight bearing, and f/u in 7- 10 days. CAM boot to be obtained this evening and discharge planned for AM.
--- NOTE | 2017-03-11 02:31 | EEG ---
ELECTROENCEPHALOGRAPHY: DATE OF STUDY: 03/10/17 - ROOM #440 LOCATION: The patient is an inpatient. ORDERING PROVIDER: Heriberto Vo NP. HISTORY: This is a 47-year-old man who was admitted last night after an episode of possible seizure versus syncope. He had been at the bar drinking on the night prior to admission and had had about 8 to 10 beers when he had an episode of starring off with inability to speak and he fell off of his barstool and had shaking for about 30 seconds. He was confused for the next 20 to 30 minutes. EEG is requested to evaluate for epileptiform abnormalities. MEDICATIONS: 1. Percocet. 2. Zofran. 3. Acetaminophen. DESCRIPTION OF PROCEDURE: The waking background showed appropriate organization with clearly defined anterior to posterior voltage and frequency gradients. There was a well defined posterior dominant rhythm of 9 Hz, which was symmetrical and showed normal reactivity. Anteriorly, there is an expected pattern of lower voltage, irregular, mixed faster frequencies. There was a significant amount of sway artifact during the recording. Photic stimulation and hyperventilation were not performed. Attenuation of the occipital rhythm accompanied drowsiness, but there were no well- developed sleep spindles indicate the transition of stage 2 sleep. Throughout the recording, there were no epileptiform discharges, focal features , paroxysmal features, or significant interhemispheric asymmetries. IMPRESSION: This is a normal, waking and drowsy EEG. There are no epileptiform abnormalities. [id number]/[facility] #: [id number] MTDLeonel
--- NOTE | 2017-03-11 07:24 | DS ---
CC: Freddie Griffin NP * DISCHARGE SUMMARY: DATE OF ADMISSION: 03/09/17 DATE OF DISCHARGE: 03/11/17 PRIMARY CARE PROVIDER: Freddie Griffin NP ATTENDING PHYSICIAN: Dr. Lidia Jones * (report dictated by Julee Hui NP). PRIMARY DIAGNOSES: 1. Syncope versus seizure. 2. Alcohol intoxication. SECONDARY DIAGNOSES: Hypertension. STUDIES WHILE ON THE HOSPITAL: 1. Foot, left, 3 views, no fracture or malalignment evident, artifact from the patient's sock produced damaged quality, correlate with clinic assessment and consider repeat exam with sock removed if deemed appropriate. 2. CT of the spine, cervical, without contrast, no CT evidence for traumatic cervical spine injury. 3. CT of the brain without contrast, 03/09/17, negative unenhanced head CT. 4. Elbow, right, 3 views, normal articular alignment, negative for effusion or fracture, mild dorsal soft tissue swelling. 5. Left ankle, 2 views, negative for fracture or malalignment about the ankle, unexplained coronal lucency at the proximal metaphysis of the 3rd metatarsal, correlate with clinical assessment and consider radiographs for further evaluation if deemed appropriate. 6. Transthoracic echocardiogram, 03/10/17, mild concentric left ventricular hypertrophy is observed. The global left ventricular wall motion and contractility within normal limits. Left ventricular systolic function is at the lower limits of normal. The estimated ejection fraction is 50% to 55%. The right ventricular chamber size and systolic function within normal limits. There is trace aortic regurgitation. There is trace mitral regurgitation. There is trace tricuspid regurgitation. There is no significant pericardial effusion. 7. Bilateral carotid ultrasound, no evidence of hemodynamically significant stenosis in either internal carotid artery with intimal wall thickening. MEDICATIONS AT THE TIME OF DISCHARGE: New medications: 1. Tylenol 650 mg every 4 hours as needed. 2. Percocet 5/325 two tablets every 4 hours as needed, not to exceed 6 tablets per day. 3. Ibuprofen 600 mg oral every 6 hours. HISTORY OF PRESENT ILLNESS AND HOSPITAL COURSE: Mr. Harrell is a 47-year-old male who was drinking heavily at a bar on 03/08/17. The patient had 8 to 10 beers. While at the bar, the patient had an episode where he started to quiver his lips, shaking and quivering and shaking that had lasted about 30 seconds; however, for about 20 to 30 minutes after, he was confused. The patient fell off of a barstool and caught his foot in the bottom footrest of the bar. He was without any incontinence of urine or stool with the episode. He was concerned about the episode the following day and came to the emergency room for evaluation. When he came to the emergency room then, he still was found to have an alcohol level of 46. The hospitalists were asked to evaluate this patient for admission. The patient was admitted for syncope versus seizure. The patient was admitted to the telemetry floor and had serial cardiac enzymes, which were negative. Otherwise, the patient had fairly normal lab work. The patient had x-rays of his left foot, both foot and ankle that did not show any evidence of fracture. Unfortunately, the foot x-ray was complicated by artifact from a shock and he will have a repeat foot x-ray prior to leaving. The patient has been able to ambulate with crutches and pain is controlled with ibuprofen. For the syncope workup, the patient had a transthoracic echocardiogram that showed normal heart function, estimated ejection fraction was 50% to 55%. The patient had an EEG which was normal. The patient also had a carotid Doppler study that showed no hemodynamically significant stenosis. Given that the patient does not drink this much on a regular basis, it seems more likely this episode was related to alcohol intoxication. The plan will be for the patient to return home without without any seizure medications yet. If an episode like this would happen again, he would need to seek out medical advice immediately and recommendation would be to start him on an antiepileptic at that time. On 03/10/17, vitals were as follows: Temperature 91, heart rate 78, respiratory rate 16, blood pressure 139/83, oxygen saturation 95%. At this point, he was stable for discharge home. DISCHARGE PLAN: He will be discharged on a regular diet. The patient is instructed to follow up with primary care provider within 7 to 10 days. The patient is instructed to call [facility] at [phone] if he continues to have pain after 1 week. He can be weightbearing as tolerated and use crutches. The patient should return to the hospital if he experiences any further episodes similar to this with convulsions. I have reviewed all the instructions with the patient and he is agreeable with his discharge today. This is a summarized report of a complex medical history and hospital stay. For more details, please see the entire medical record. TIME SPENT: Time for discharge was 50 minutes and 25 minutes were spent with the patient discussing medications at discharge and followup instructions. CONDITION ON DISCHARGE: Stable. JULEE HUI NP [id number]/[facility] #: [id number] NATY
[2017-03-11] MEDS: oxyCODONE/Acetamin 5/325 MG* TAB PO PRN (08:45)
[2017-03-11 09:39] VITALS: BP 141/89
--- NOTE | 2017-03-11 14:53 | DS ---
CC: Monty Sanchez MD * DISCHARGE SUMMARY ADDENDUM: DATE OF ADMISSION: 03/09/17 DATE OF ACTUAL DISCHARGE: 03/11/17 ATTENDING PHYSICIAN: Kenny Skinner MD * (DICTATED BY SHAJI KAY NP) PRIMARY CARE PROVIDER: Freddie Griffin NP. CONSULTATION: Monty Sanchez MD, Orthopedic Surgery. ADDITIONAL STUDY WHILE IN THE HOSPITAL: Foot x-ray on 03/10/17 at 4:30 p.m. reads nondisplaced fracture of the base of the third metatarsal. Osteoarthritis of the first MTP joint. ADDENDUM: Mr. Harrell was initially planned to be discharged on the evening of 03/10/17, yet he continued to have severe pain in the left foot and upon review of the x- ray of the left foot, the study was not an ideal study due to the presence of the sock. For this reason, the foot was re-x-rayed and showed a nondisplaced fracture of the third metatarsal. Orthopedic Surgery was consulted who recommended partial weightbearing status and placement of a CAM boot. The CAM boot was supplied to the patient and PT worked with the patient to show him how to use the boot. The patient will be discharged with partial weightbearing status on the left lower extremity and he has been instructed to follow up with Dr. Monty Sanchez at [facility] within a week to 10 days. I have reviewed all these instructions with the patient, he is agreeable with his discharge. CONDITION ON DISCHARGE: Stable. SHAJI KAY NP [id number]/[facility] #: [id number] [facility]
== END 2017-03-11 12:00 | disposition home or self-care (01) ==
LOC: ED 13:25 → MEDTELE 20:07
PROVIDERS: ADMIT Hospitalist; ATTEND Hospitalist
DX: R55 Syncope and collapse (principal); F10.129 Alcohol abuse with intoxication, unspecified; E66.01 Morbid (severe) obesity due to excess calories; I10 Essential (primary) hypertension; F17.210 Nicotine dependence, cigarettes, uncomplicated; M25.572 Pain in left ankle and joints of left foot; S92.335A Nondisplaced fracture of third metatarsal bone, left foot, initial encounter for closed fracture; W07.XXXA Fall from chair, initial encounter; Y92.511 Restaurant or cafe as the place of occurrence of the external cause; R94.31 Abnormal electrocardiogram [ECG] [EKG]; I51.7 Cardiomegaly
CPT/HCPCS: 36415; 70450; 72125; 80048; 80053; 80320; 81003; 83605; 83735; 84443; 84484; 85025; 85610; 93005; 93306; 93880; 95816; 96360; 96361; 99284; 99406; A9270-GY; G0378; G0480

== ENCOUNTER 2017-07-09 12:06 | Day surgery (SDC) | payer BC ==
[~2017-07-09 12:06] MED LIST: Buffered Lidocaine 0.9% SYRIN* 5 ML/SYR SYRINGE INTRADERM ONE; Dexamethasone IV* 4 MG/ML 1 ML (4 MG) IV SLOW PU ONE; Famotidine TAB* 20 MG PO ONE
[2017-07-09] MEDS ORDERED: Dexamethasone IV* 4 MG/ML 1 ML (4 MG) ONE (12:18)
[2017-07-09] MEDS ORDERED: ceFAZolin 2 GM PREMIX (*) 2 GM/50 ML BAG IVPB ONE (12:19)
[2017-07-09] MEDS ORDERED: Famotidine TAB* 20 MG ONE (12:19)
[2017-07-09] MEDS ORDERED: ceFAZolin 1 GM in Dextrose (*) 0 GM/0 ML BAG IVPB ONE (12:26)
[2017-07-09] MEDS ORDERED: fentaNYL* 50 MCG/ML 2 ML VIAL (100 MCG VIAL) ONE ×6 (14:11→16:50)
[2017-07-09] MEDS ORDERED: Midazolam* 1 MG/ML 5 ML VIAL (5 MG) ONE (14:11)
[2017-07-09] MEDS ORDERED: Atracurium* 10 MG/ML 10 ML VIAL ONE (14:11)
[2017-07-09] MEDS ORDERED: Bupivacaine 0.25% SDV* 30 ML ONE (14:17)
[2017-07-09] MEDS ORDERED: ROPIVACAINE 5 MG/ML 30 ML BTL (0.5%) ONE ×2 (14:25→17:28)
[2017-07-09] MEDS ORDERED: Levalbuterol 0.63MG/3ML NEB* UNIT OF USE INH ONE ×2 (14:28→14:29)
[2017-07-09] MEDS ORDERED: Scopolamine 1.5 mg* PATCH TRANSDERM PRN (15:46)
[2017-07-09] MEDS ORDERED: Ondansetron INJ* 2 MG/ML VIAL IV PRN (15:46)
[2017-07-09] MEDS ORDERED: Naloxone* 0.4 MG/ML 1 ML VIAL IV PRN (15:46)
[2017-07-09] MEDS: fentaNYL* 50 MCG/ML 2 ML VIAL (100 MCG VIAL) IV PRN ×2 (16:50→16:59)
[2017-07-09] MEDS ORDERED: HYDROmorphone INJ* 2 MG/ML CARPUJECT SYRINGE ONE (17:06)
[2017-07-09] MEDS ORDERED: oxyCODONE/Acetamin 5/325 MG* TAB ONE ×2 (17:06→17:16)
[2017-07-09] MEDS: HYDROmorphone INJ* 1 MG/ML CARPUJECT SYRINGE IV PRN ×7 (17:10→18:10)
[2017-07-09] MEDS: oxyCODONE/Acetamin 5/325 MG* TAB PO PRN ×2 (17:14→17:17)
[2017-07-09] MEDS ORDERED: Enalaprilat IV* 1.25 MG/ML 1 ML VIAL (1.25 MG) IV PRN (17:49)
[2017-07-09] MEDS ORDERED: Enalaprilat IV* 1.25 MG/ML 2 ML VIAL (2.5 MG) ONE (17:51)
[2017-07-09 18:22] VITALS: BP 134/87
--- NOTE | 2017-07-13 12:38 | OP ---
DATE OF OPERATION: 07/09/17 - [facility] DATE OF : 66 SURGEON: Steph Singh MD GALLERY OR MUSEUM CURATOR: TERRANCE Romero. An account assistant was needed for the entirety of the case to help with positioning, retraction, and was utilized throughout all portions of the case. ANESTHESIOLOGIST: Travis Mclaughlni MD ANESTHESIA: General interscalene block. PRE-OP DIAGNOSES: Right shoulder high-grade partial thickness tear of the rotator cuff with bicipital tendinitis and a SLAP tear. POST-OP DIAGNOSES: Right shoulder high-grade partial thickness tear of the rotator cuff with bicipital tendinitis and a SLAP tear. OPERATIVE PROCEDURE: 1. Right shoulder arthroscopy with limited glenohumeral debridement. 2. Subacromial decompression with acromioplasty. 3. High-grade partial-thickness bursal side of tear with rotator cuff. 4. Subpectoral biceps tenodesis. COMPLICATIONS: None. ESTIMATED BLOOD LOSS: Minimal. INDICATIONS: Manuel Harrell is a 47-year-old male with persistent shoulder pain refractory to conservative management. He was diagnosed with a partial- thickness tear of the rotator cuff with bicipital tendinitis. He has failed conservative management. Risks and benefits were discussed at length. They include but are not limited to bleeding, infection, damage to nerves, vessels, surrounding structures, wound nonhealing, persistent pain, need for further surgery, scarring, stiffness, incomplete relief of symptoms, and risk of anesthesia. He has elected to proceed. DESCRIPTION OF PROCEDURE: The patient was greeted in the preoperative area by the attending surgeon. The correct extremity was marked and consent was confirmed, then underwent interscalene nerve block by the anesthesiologist in the preoperative area. He was then brought back to the operating suite where he was placed in supine position on the operating table. He then underwent general anesthesia with endotracheal intubation, after which he was positioned in the left lateral decubitus position. All bony prominences were padded. He was secured with a peg board. The right arm was draped unsterile with 10 pounds of traction. The right shoulder was prepped and draped in the usual sterile fashion beginning with chlorhexidine soap scrub and alcohol wipe and a final prep with ChloraPrep. After appropriate surgical pause indicating side, site, and procedure, and administration of antibiotics, the standard posterolateral portal was made sharply with an 11-blade. Scope was introduced into the joint. The joint was examined. There were grade 0 to 1 changes to the glenohumeral joint. There was unstable flaps in the anterior, posterior, and superior labrum. There was SLAP type 2 tear. Biceps had evidence of tendinopathy as well as tendinitis. There was abundant erythema, but the undersurface of the rotator cuff was okay. Supraspinatus was okay. There was mild fraying of the supraspinatus tendon that was debrided back. Shaver was used to brought through the anterior portal and the anterior, posterior, and superior labrum were debrided back. The biceps was taken through range of motion. There was abundant erythema along the groove as well as the some mild damage to the paige and thus was tenotomized for later tenodesis. Rotator cuff undersurface was examined and found to have not any significant tearing on the articular side. The scope was then introduced into the subacromial space and the lateral portal was made in an outside- in fashion. Shaver was used to debride back the abundant bursa that was present. The acromion had a small anterolateral undersurface spur and then debrided back using the 4-0 oval sunitha during acromioplasty. Once this was done, all debris was removed from portion of the case. Attention was directed to the rotator cuff. The rotator cuff was found to have some evidence of bursal side of the tearing, especially anterior. It was curved and found to have greater than 50% thickness tearing, it was a small tear. A decision was made to repair this. The rotator cuff was taken down. An 11-blade and an electrocautery device were used to skeletonize the greater tuberosity. The rasp and the 4-0 oval sunitha were then used to gently decorticate the greater tuberosity. The soft tissue was then debrided back using the shaver and it was mobilized. Once the cuff was mobilized, one anchor was placed in the medial row, it was 4.75 Healicoil excellent purchase. The awl was then used to make a small microfracture to help stimulate healing. After this was complete, the sutures were passed through the tendon in horizontal mattress configuration and then tied down using arthroscopic knot tying. The sutures were then passed through a separate anchor for lateral row fixation. Final images were obtained. This helped to repair and compress the rotator cuff back to the greater tuberosity. The shoulder was taken through a gentle range of motion and found to be intact. At this point, attention was directed to the biceps. At this point, the bed was airplaned to the right side. The anterior aspect of the shoulder was prepped again using ChloraPrep. A 15-blade was used to make an incision in line with the biceps encompassing the inferior third of the pec. The soft tissues were carefully dissected using the Metzenbaum scissors. Once the fascia was identified, the remainder of the dissection was done bluntly. The biceps was brought through the groove and then the groove was prepared in the usual fashion with an electrocautery device, the rasp as well as the osteotome to allow for bony bleeding bed. The Q-FIX sterile guide was then drilled unicortically. The Q-FIX was deployed with excellent purchase. The sutures were passed through the tendon approximately 1 cm proximal to the musculotendinous junction. The sutures were passed through the tendon in a Fidel-Hector type configuration. The excess stump was excised and sutures were then tied down and biceps secured. The wounds were copiously irrigated with sterile saline. The anterior wound was closed in layers with 2-0 Vicryl and 3- 0 Monocryl and then portals were closed with nylon. Anterior wound was injected with 0.25% Marcaine plain. Sterile dressings were applied. The Cryo/Cuff and UltraSling were applied. He was awoken from anesthesia and transferred to PACU in stable condition. POSTOPERATIVE PLAN: He will be nonweightbearing. He will be in a sling for 6 weeks. He will be discharged on pain medications, antibiotics. I will see the patient back in 14 days. [id number]/[facility] #: [id number] NATY
== END 2017-07-09 19:09 | disposition home or self-care (01) ==
LOC: OR 12:06
PROVIDERS: ATTEND Orthopaedic Surgery
DX: S46.011A Strain of muscle(s) and tendon(s) of the rotator cuff of right shoulder, initial encounter (principal); S43.491A Other sprain of right shoulder joint, initial encounter; M75.21 Bicipital tendinitis, right shoulder; X58.XXXA Exposure to other specified factors, initial encounter; Y92.9 Unspecified place or not applicable; G89.18 Other acute postprocedural pain; F17.210 Nicotine dependence, cigarettes, uncomplicated; I10 Essential (primary) hypertension
CPT/HCPCS: A9270-GY; C1713; C1776; J0690; J1100; J1170; J2250; J2795; J3010

== ENCOUNTER 2017-11-06 14:37 | Emergency (ER) | payer BC ==
--- OUTSIDE RECORDS SUMMARY | 2017-11-06 14:42 | XMS REPORT ---
:1970 External Reference #:[id number] Author Organization [employer] Address [address] [place] [address] Phone [phone] Care Team Providers Name Role Phone Freddie Griffin NP Primary Care Physician Unavailable Payers Type Date Identification Numbers Payment Provider Subscriber Commercial Policy Number: [id number] [employer] Manuel Harrell PayID: [id number] [address] [place] [address] Medigap Part B Expires: 2009 Policy Number: [facility] Manuel Joyce [id number] [address] [facility] [address] [place] [address] Problems Date Description Provider Status Onset: 03/19/2017 Closed fracture of metatarsal bone Jaspal Landry MD Active Onset: 05/02/2017 Injury of shoulder region Steph Singh MD Active Onset: 05/02/2017 Strain of musc/tend the rotator cuff of Steph Singh MD Active right shoulder, subs Onset: 07/04/2017 Strain of musc/fasc/tend long hd bicep, Steph Singh MD Active right arm, subs Onset: 08/21/2017 Incomplete rotatr-cuff tear/ruptr of r Steph Singh MD Active shoulder, not trauma Onset: 08/21/2017 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 Onset: 08/21/2017 Bicipital tenosynovitis Steph Singh MD Active Social History Type Date Description Comments Smoking Patient is a current smoker, smokes every day Allergies, Adverse Reactions, Alerts Date Description Reaction Status Severity Comments 03/19/2017 NKDA active Medications Medication Date Status Form Strength Qnty SIG Indications Ordering Provider Oxycodone-Richi Active Tablets 5-325mg 20tabs 1 tab by Steph taminophen 018 mouth MD Francisco every 8 hours as needed for pain Diclofenac Active Tablets DR 75mg 60tabs take 1 S46.011D Zaneb Sodium 018 tablet MD Francisco twice a day with food Ibuprofen Active Unknown 000 Tylenol Active Unknown 000 Losartan Active Tablets 25mg [place], Potassium 000 Mashelle, [employer] Cephalexin Hx Tablets 500mg 12tabs take 1 by Steph 018 - mouth MD Francisco four 018 times a day x 3 days Oxycodone-Richi Hx Tablets 5-325mg 1-2 tabs Unknown taminophen 000 - by mouth every 4-6 018 hours as needed for pain Medications Administered in Office Medication Date Status Form Strength Qnty SIG Indications Ordering Provider Triamcinolone 06/06/ Administered Injection Zaneb (Kenalog) 2017 MD Francisco Triamcinolone 04/03/ Administered Injection Shanel (Kenalog) 2017 ADALI Thrasher Vital Signs Date Vital Result Comment 10/31/2017 Height 70 inches 5'10" Weight 270.00 lb Heart Rate 82 /min Respiratory Rate 14 /min Body Temperature 97.9 F Pain Level 3 BMI (Body Mass Index) 38.7 kg/m2 09/30/2017 Height 70 inches 5'10" Weight 270.00 lb Heart Rate 74 /min BP Systolic Sitting 124 mmHg BP Diastolic Sitting 80 mmHg Respiratory Rate 16 /min Pain Level 4 BMI (Body Mass Index) 38.7 kg/m2 09/02/2017 Height 70 inches 5'10" Heart Rate 84 /min BP Systolic 144 mmHg BP Diastolic 90 mmHg Respiratory Rate 16 /min Body Temperature 97.6 F Pain Level 2 08/21/2017 Height 70 inches 5'10" Weight 255.00 lb BP Systolic 130 mmHg BP Diastolic 80 mmHg Respiratory Rate 18 /min Pain Level 5 BMI (Body Mass Index) 36.6 kg/m2 07/22/2017 Height 70 inches 5'10" Weight 255.00 lb BP Systolic 128 mmHg BP Diastolic 88 mmHg Respiratory Rate 20 /min Body Temperature 97.9 F Pain Level 6 BMI (Body Mass Index) 36.6 kg/m2 07/04/2017 Height 70 inches 5'10" Weight 255.00 lb BP Systolic 140 mmHg BP Diastolic 82 mmHg Respiratory Rate 18 /min Pain Level 6 BMI (Body Mass Index) 36.6 kg/m2 06/06/2017 Height 70 inches 5'10" Weight 255.00 lb BP Systolic 132 mmHg BP Diastolic 88 mmHg Respiratory Rate 18 /min Pain Level 6 BMI (Body Mass Index) 36.6 kg/m2 05/02/2017 Height 70 inches 5'10" Weight 255.00 lb per pt Heart Rate 72 /min BP Systolic Sitting 166 mmHg Lue reg cuff BP Diastolic Sitting 120 mmHg Lue reg cuff Respiratory Rate 16 /min Body Temperature 98.0 F tymp. R ear O2 % BldC Oximetry 95 % On Ra BMI (Body Mass Index) 36.6 kg/m2 04/03/2017 Height 70 inches 5'10" Weight 255.00 lb BP Systolic 138 mmHg BP Diastolic 86 mmHg Respiratory Rate 18 /min Pain Level 7 BMI (Body Mass Index) 36.6 kg/m2 04/01/2017 Height 70 inches 5'10" Weight 255.00 lb BP Systolic 128 mmHg BP Diastolic 80 mmHg Respiratory Rate 18 /min Body Temperature 98.3 F Pain Level 3 BMI (Body Mass Index) 36.6 kg/m2 03/19/2017 Height 70 inches 5'10" Weight 255.00 lb BP Systolic 130 mmHg BP Diastolic 78 mmHg Respiratory Rate 20 /min Pain Level 6 BMI (Body Mass Index) 36.6 kg/m2 Results Test Date Test Result H/L Range Note CBC Auto Diff 07/04/2017 White Blood Count 7.9 10^3/uL 3.5-10.8 Red Blood Count 4.94 10^6/uL 4.0-5.4 Hemoglobin 15.3 g/dL 14.0-18.0 Hematocrit 45 % 42-52 Mean Corpuscular Volume 92 fL 80-94 Mean Corpuscular Hemoglobin 31 pg 27-31 Mean Corpuscular HGB Conc 34 g/dL 31-36 Red Cell Distribution Width 14 % 10.5-15 Platelet Count 263 10^3/uL 150-450 Mean Platelet Volume 8.2 um3 7.4-10.4 Abs Neutrophils 4.8 10^3/uL 1.5-7.7 Abs Lymphocytes 2.1 10^3/uL 1.0-4.8 Abs Monocytes 0.8 10^3/uL 0-0.8 Abs Eosinophils 0.2 10^3/uL 0-0.6 Abs Basophils 0 10^3/uL 0-0.2 Abs Nucleated RBC 0 10^3/uL Granulocyte % 60.2 % 38-83 Lymphocyte % 26.8 % 25-47 Monocyte % 10.5 % High 0-7 Eosinophil % 1.9 % 0-6 Basophil % 0.6 % 0-2 Nucleated Red Blood Cells % 0.1 Basic Metabolic Panel 07/04/2017 Sodium 141 mmol/L 139-145 Potassium 4.8 mmol/L 3.5-5.0 Chloride 102 mmol/L 101-111 Co2 Carbon Dioxide 33 mmol/L High 22-32 Anion Gap 6 mmol/L 2-11 Glucose 77 mg/dL 70-100 Blood Urea Nitrogen 17 mg/dL 6-24 Creatinine 0.94 mg/dL 0.67-1.17 BUN/Creatinine Ratio 18.1 8-20 Calcium 9.8 mg/dL 8.6-10.3 Egfr Non- 85.3 >60 Egfr 109.7 >60 1 1 Because ethnic data is not always readily available, this report includes an eGFR for both -Americans and non- Americans. The National Kidney Disease Education Program (NKDEP) does not endorse the use of the MDRD equation for patients that are not between the ages of 18 and 70, are , have extremes of body size, muscle mass, or nutritional status, or are non- or non-. According to the National Kidney Foundation, irrespective of diagnosis, the stage of the disease is based on the level of kidney function: Stage Description GFR(mL/min/1.73 m(2)) 1 Kidney damage with normal or decreased GFR 90 2 Kidney damage with mild decrease in GFR 60-89 3 Moderate decrease in GFR 30-59 4 Severe decrease in GFR 15-29 5 Kidney failure <15 (or dialysis) Procedures Date CPT Code Description Status 07/09/2017 61652 Arthroscopy Shoulder,W/Rotator Cuff Repair Completed 07/09/2017 87248 Arthroscopy Shoulder,W/Rotator Cuff Repair Completed 07/09/2017 55667 Arthroscopy,Shoulder Decompression Of Subacromial Space Completed W/Acromio 07/09/2017 80293 Arthroscopy,Shoulder Decompression Of Subacromial Space Completed W/Acromio 07/09/2017 07925 Arthroscopy Shoulder Debridement Extensive Completed 07/09/2017 18151 Arthroscopy Shoulder Debridement Extensive Completed 07/09/2017 51824 Tenodesis Biceps Long Tendon Completed 07/09/2017 42505 Tenodesis Biceps Long Tendon Completed 06/06/2017 75110 Inject Tendon Sheath Or Ligament Aponeurosis Eg Plantar Completed Fascia 04/03/2017 57896 Inject/Drain Joint/Bursa Major W/O US Completed 03/10/2017 71560 EEG Recording Awake & Drowsy Completed 03/10/2017 21013 ECHO Transthorasic Realtime 2D W Doppler & Color Flow Completed Hosp 03/10/2017 48883 EKG, Interpretation Only Completed Encounters Type Date Location Provider CPT E/M Dx Office Visit 09/02/2017 [place] [address] S92.335D 10:15a [facility] S92.325D Office Visit 07/04/2017 9:45a [facility] [place] [address] S46.011D [facility] S46.111D Office Visit 06/06/2017 10:30a [place] [address] S92.335D [facility] S92.325D Office Visit 06/06/2017 9:15a [facility] [place] [address] S46.011D [facility] S46.111D M25.511 Office Visit 05/02/2017 9:30a [facility] [place] [address] S46.011D [facility] S46.101A S46.111D Office Visit 05/02/2017 11:30a [place] [address] S92.335D [facility] S92.325D Office Visit 04/03/2017 8:00a [facility] [place] [address] M25.511 [facility] S43.421A Office Visit 04/01/2017 2:00p [place] [address] S92.335A [facility] S92.325A M75.101 Office Visit 03/19/2017 2:00p [place] [address] S92.335A [facility] Office Visit 03/09/2017 8:28a [facility], [address] [facility] I10 S92.335A Office Visit 06/23/2007 4:30p [facility] [place], [address] 722.10 Of Enma Kelley Office Visit 05/28/2007 3:00p [facility], 42012 721.3 Of Enma Kelley 846.0 Plan of Care Future Appointment(s):01/01/2018 8:15 am - Steph Singh MD at [facility]10/31/2017 - Steph Singh, MDM75.111 Incomplete rotatr-cuff tear/ruptr of r shoulder, not traumaFollow up:Follow up: 2 [id number] Bicipital tendinitis, right shoulder
[2017-11-06 14:58] VITALS: BP 145/93
--- NOTE | 2017-11-06 15:41 | UC ---
Complaint Male HPI - HPI Summary HPI Summary: The pt is a 47 y/o male presenting to c/o testicular pain for about 6 years worse today on the . The intermittent pain is aggravated by physical activity and walking, and is alleviated by ice. He has seen a urologist for the pain to no relief. He notes occasional dysuria , swelling on the L testicle but denies abdominal pain . He denies a PMHx of hernia or vasectomy. This is scribe Lucille Slaughter documenting for attending Dr. Kim Godinez, Dr. Tanner Alvarez , personally performed the services described in this documentation as scribed in my presence and it is both accurate and complete. - History of Current Complaint Chief Complaint: UCGU Stated Complaint: PERSONAL Hx Obtained From: Patient Onset/Duration: Gradual Onset, Worse Since - Today Timing: Intermittent Severity Initially: Moderate Severity Currently: Moderate Pain Intensity: 5 Pain Scale Used: 0-10 Numeric Location: Testicle - Epididymis Associated Signs And Symptoms: Positive: Dysuria. Negative: Appetite - Allergies/Home Medications Allergies/Adverse Reactions: Allergies Allergy/AdvReac Type Severity Reaction Status Date / Time No Known Allergies Allergy Verified 11/06/17 14:58 Home Medications: Home Medications Ibuprofen TAB* 400 mg PO BID PRN 11/06/17 [History Confirmed 11/06/17] PMH/Surg Hx/FS Hx/Imm Hx Previously Healthy: Yes GI/ History: Other - Negative: hernia Other GI/ History: . - Surgical History Surgical History: Yes Surgery Procedure, Year, and Place: Rotator cuff and tendon repair Other Surgical History: Negative: Vasectomy - Family History Known Family History: Positive: Hypertension - Social History Occupation: Employed Full-time Lives: With Family Alcohol Use: Weekly Alcohol Amount: 1 -2 beers Substance Use Type: None Smoking Status (MU): Light Every Day Tobacco Smoker Type: Cigarettes Amount Used/How Often: 6 cigs daily Length of Time of Smoking/Using Tobacco: 5 years Have You Smoked in the Last Year: Yes Review of Systems Gastrointestinal: Negative - Abdominal pain Genitourinary: Dysuria, Other - Positive : bilateral testicular pain All Other Systems Reviewed And Are Negative: Yes Physical Exam - Summary Physical Exam Summary: General: well-appearing, no pain distress Skin: warm, color reflects adequate perfusion, dry Head: normal Eyes: EOMI, PETTY ENT: positive rhinorrhea, mild erythema at the back of the throat Neck: supple, nontender Respiratory: CTA, breath sounds present Cardiovascular: RRR Abdomen: soft, nontender Bowel: present Musculoskeletal: normal, strength/ROM intact Neurological: sensory/motor intact, A&O x3 Psychological: affect/mood appropriate : Mild tenderness of the L epididymis, testicle are not swollen, Inguinal canal is not swollen, normal axis, no rash Triage Information Reviewed: Yes Vital Signs: Initial Vital Signs Temp 98.6 F 11/06/17 14:51 Pulse 72 11/06/17 14:51 Resp 16 11/06/17 14:51 BP 145/93 11/06/17 14:51 Pulse Ox 96 11/06/17 14:51 Vital Signs Reviewed: Yes Complaint Male Course/Dx - Course Course Of Treatment: THE AREA OF TENDERESS CORRESPONDS TO THE LEFT EPIDIDYMIS. THERE IS NO ABDOMINAL OR INGUINAL SWELLING OR TENDERNESS. THE TESTICLES ARE NOT SWOLLEN AND BOTH ARE NORMAL AXIS. THE PAIN HAS BEEN GOING ON AND OFF FOR YEARS. NO EVIDENCE OF TORSION ON EXAM. NO U/S AVAILABLE IN CLINIC. UA CHECKED AND DISCUSSED THE OPTIONS OF GOING TO THE ED NOW VERSES GETTING AN U/S DONE HER IN CLINIC TOMORROW VERSES F/U WITH UROLOGY. THE PATIENT PREFERS TO F/U WITH UROLOGY. I DISCUSSED THE S/SX OF TORSION AND THE NEED TO GO TO THE ED IF HE HAS TORSION SX. - Differential Dx/Diagnosis Provider Diagnoses: LEFT TESTICULAR PAIN Discharge - Sign-Out/Discharge Documenting (check all that apply): Patient Departure - Discharge Plan Condition: Stable Disposition: HOME Patient Education Materials: Testicle Pain (ED) Referrals: Freddie Griffin NP [Primary Care Provider] - Mikie Schafer MD [Medical Doctor] - Additional Instructions: FOLLOW UP WITH UROLOGY. GET RECHECKED FOR ANY WORSENING OF YOUR CONDITION; PAIN, TESTICULAR SWELLING OR QUESTIONS OR CONCERNS. - Billing Disposition and Condition Condition: STABLE Disposition: Home
== END 2017-11-06 16:19 | disposition home or self-care (01) ==
LOC: UCEAST 14:37
DX: N50.812 Left testicular pain (principal); F17.210 Nicotine dependence, cigarettes, uncomplicated
CPT/HCPCS: 81003; 87086; 99211; G0463

== ENCOUNTER 2018-07-09 15:42 | Emergency (ER) | payer SELFPAY ==
[2018-07-09 16:23] VITALS: BP 136/94
[2018-07-09] MEDS ORDERED: Ketorolac INJ* 60 MG/2 ML VIAL IM ONE (16:45)
--- NOTE | 2018-07-09 17:07 | UC ---
Back Pain HPI - HPI Summary HPI Summary: Hx of lumbar disc disease based on MRI done more than a decade ago. Fishing this morning and went to sit down, with sudden onset of pain in the low back with radiation to the left posterior leg, behind the knee. Difficulty walking today, but no loss of control of bowel or bladder. Hx of low back pain, has been off work x 1 year since he had right shoulder surgery and fractured his left foot. MRI of the lumbar spine from 2007 reviewed, with evidence of L5-S1 small central disc herniation Took voltaren this morning for shoulder pain. - History of Current Complaint Chief Complaint: UCBackPain Stated Complaint: LEFT LEG/FOOT NUMBNESS Time Seen by Provider: 07/09/18 16:45 Hx Obtained From: Patient Onset/Duration: Sudden Onset, Lasting Hours Timing: Constant Severity Initially: Severe Severity Currently: Severe Pain Intensity: 10 Back Pain: Is Discrete @ - low back, Radiates To - left leg Character: Sharp, Aching, Throbbing Aggravating Factor(s): Movement, Bending, Walking, Cough Alleviating Factor(s): Rest - Allergies/Home Medications Allergies/Adverse Reactions: Allergies Allergy/AdvReac Type Severity Reaction Status Date / Time No Known Allergies Allergy Verified 07/09/18 16:12 PMH/Surg Hx/FS Hx/Imm Hx - Additional Past Medical History Additional PMH: obese Cardiovascular History: Hypertension - Surgical History Surgical History: Yes Surgery Procedure, Year, and Place: Rotator cuff and tendon repair Other Surgical History: Negative: Vasectomy - Family History Known Family History: Positive: Hypertension, Diabetes - Social History Occupation: Unemployed - off work x 1 year Lives: With Family - lives with his brother Alcohol Use: None Alcohol Amount: 1 -2 beers Substance Use Type: None Smoking Status (MU): Light Every Day Tobacco Smoker Type: Cigarettes Amount Used/How Often: 6 cigs daily Length of Time of Smoking/Using Tobacco: 5 years Have You Smoked in the Last Year: Yes Cessation Counseling: Patient Advised to Stop Review of Systems All Other Systems Reviewed And Are Negative: Yes Constitutional: Positive: Fatigue Skin: Positive: Negative Eyes: Positive: Negative ENT: Positive: Negative Respiratory: Positive: Negative Cardiovascular: Positive: Negative Gastrointestinal: Positive: Negative Genitourinary: Positive: Negative Motor: Positive: Decreased ROM Neurovascular: Positive: Decreased Sensation Musculoskeletal: Positive: Arthralgia - had injection of ? steroids into left shoulder last week by Dr. Singh. Neurological: Positive: Numbness - left foot Is Patient Immunocompromised?: No Physical Exam Triage Information Reviewed: Yes Appearance: Pain Distress - moderate to severe, Obese Vital Signs: Initial Vital Signs Temp 98.1 F 07/09/18 16:15 Pulse 81 07/09/18 16:15 Resp 17 07/09/18 16:15 BP 136/94 07/09/18 16:15 Pulse Ox 97 07/09/18 16:15 ENT: Positive: Normal ENT inspection Respiratory: Positive: Lungs clear, Normal breath sounds Cardiovascular: Positive: RRR, No Murmur Abdomen Description: Positive: Nontender, No Organomegaly, Soft Musculoskeletal Exam: Other - SLR to 90 degrees on the right, to 30 degrees on the left. Musculoskeletal: Positive: Strength Intact, ROM Limited @ - lumbar spine with FF to 30 degrees, pain beyond. Can lift up on toes. Neurological Exam: Other - hyporeflexic throughout. NOrmal strength. Neurological: Positive: Alert, Muscle Tone Normal Psychological: Positive: Normal Response To Family Skin Exam: Normal Back Pain Course/Dx - Course Course Of Treatment: toradol with some relief of pain Muscle relaxant and medrol dose pack for suspected disc herniation. Follow up with PMD to arrange further evaluation. - Differential Dx/Diagnosis Differential Diagnosis/HQI/PQRI: Cauda Equina Syndrome, Herniated Disc, Strain, Sprain Provider Diagnosis: Lumbar disc herniation with radiculopathy Discharge - Sign-Out/Discharge Documenting (check all that apply): Patient Departure All imaging exams completed and their final reports reviewed: No Studies - Discharge Plan Condition: Stable Disposition: HOME Prescriptions: Cyclobenzaprine TAB* [Flexeril 10 MG TAB*] 10 mg PO TID PRN #30 tab PRN Reason: Spasms - Back methylPREDNISolone [Medrol] 4 mg PO .SEE SUNNY INSTRUCTION #1 [id number] Patient Education Materials: Lumbar Disc Herniation (ED) Referrals: Freddie Griffin MORTGAGE CLERK [Primary Care Provider] - Additional Instructions: I suspect that you have a disc herniation in the lumbar spine. Continue your twice daily voltaren. A steroid dose pack has been prescribed to decrease the amount of inflammation in the low back, and a muscle relaxant should help to decrease the spasm in the muscles. It is important to follow up with Freddie Griffin tomorrow or Friday, because she can arrange follow up treatment and testing. If you have any loss of bowel or bladder control, please go to the emergency room for evaluation. - Billing Disposition and Condition Condition: STABLE Disposition: Home
== END 2018-07-09 17:45 | disposition home or self-care (01) ==
LOC: UCCORT 15:42
DX: M51.16 Intervertebral disc disorders with radiculopathy, lumbar region (principal); R53.83 Other fatigue; I10 Essential (primary) hypertension; F17.210 Nicotine dependence, cigarettes, uncomplicated
CPT/HCPCS: 96372; 99212; G0463; J1885

== ENCOUNTER 2018-07-20 10:25 | Emergency (ER) | payer SELFPAY ==
[2018-07-20 10:48] VITALS: BP 129/84
--- NOTE | 2018-07-20 12:44 | UC ---
Back Pain HPI - HPI Summary HPI Summary: 48 year old male with h/o back pain, numbness following fishing ~ 2 weeks ago, being followed by PCP with MRI today, ran out of medication and unable to be seen by PCP or urologist. C/O muscle spasms lower back, numbess L bottom of foot, pain with walking. Was prescribed steroids ~ 2 weeks ago, symptoms improved while on medrol dose pack, however returned after stopping. Flexeril helps with spasms, pain. Also h/o BPH, was on floxam, recently ran out, requesting refill if possible on that, did call urologist with no call back. - History of Current Complaint Chief Complaint: UCBackPain Stated Complaint: MED REFILL Time Seen by Provider: 07/20/18 12:21 Hx Obtained From: Patient Pain Intensity: 8 - Allergies/Home Medications Allergies/Adverse Reactions: Allergies Allergy/AdvReac Type Severity Reaction Status Date / Time No Known Allergies Allergy Verified 07/20/18 10:48 Home Medications: Home Medications Tylenol Extra Strength 500 mg PO DAILY 07/20/18 [History Confirmed 07/20/18] PMH/Surg Hx/FS Hx/Imm Hx Previously Healthy: No - h/o back pain - Surgical History Surgical History: Yes Surgery Procedure, Year, and Place: Rotator cuff and tendon repair Other Surgical History: Negative: Vasectomy - Family History Known Family History: Positive: Hypertension, Diabetes - Social History Alcohol Use: None Alcohol Amount: 1 -2 beers Substance Use Type: None Smoking Status (MU): Light Every Day Tobacco Smoker Type: Cigarettes Amount Used/How Often: 6 cigs daily Length of Time of Smoking/Using Tobacco: 5 years Have You Smoked in the Last Year: Yes Review of Systems All Other Systems Reviewed And Are Negative: Yes Constitutional: Positive: Negative Motor: Positive: Decreased ROM Musculoskeletal: Positive: Arthralgia, Myalgia Is Patient Immunocompromised?: No Physical Exam Triage Information Reviewed: Yes Appearance: Well-Appearing, No Pain Distress, Well-Nourished Vital Signs: Initial Vital Signs Temp 98 F 07/20/18 10:45 Pulse 96 07/20/18 10:45 Resp 18 07/20/18 10:45 BP 129/84 07/20/18 10:45 Pulse Ox 97 07/20/18 10:45 Vital Signs Reviewed: Yes Eyes: Positive: Conjunctiva Clear Musculoskeletal: Positive: Other: - FF from hip to < 60 degrees without pain, Decreased standing on L leg unilaterall ydue to pain, absent patellar reflex L side, 2+ right. sensation intact to light touch below knee. mildly antalgix gait favoring L side. + DF/ PF b/l. no TTP over midline spine throughout. Neurological: Positive: Alert, Muscle Tone Normal Psychological Exam: Normal Skin Exam: Normal Back Pain Course/Dx - Course Course Of Treatment: MRI taken today showing nerve root involvement, follow up with PCP, steroids, muscle relaxer given, flmax prescribed continue to cntact urologist fr refill. Go to ER with worsening of syjmptoms, loss of bowel/ bladder function - Differential Dx/Diagnosis Differential Diagnosis/HQI/PQRI: Epidural Abscess, Herniated Disc, Strain, Sprain Provider Diagnosis: Back pain Discharge - Sign-Out/Discharge Documenting (check all that apply): Patient Departure All imaging exams completed and their final reports reviewed: No Studies - Discharge Plan Condition: Fair Disposition: HOME Prescriptions: Cyclobenzaprine TAB* [Flexeril 10 MG TAB*] 10 mg PO Q6H PRN #20 tab PRN Reason: muscle spasm predniSONE [Prednisone 5 MG TAB] 5 mg PO SEE INSTRUCTIONS #42 tablet Tamsulosin HCl [Flomax] 0.4 mg PO DAILY #14 cap.er.[id number] Patient Education Materials: Lumbar Radiculopathy (ED), Lower Back Exercises ( ED) Referrals: Freddie Griffin NP [Primary Care Provider] - Additional Instructions: - Call primary to set up appointment to review MRI results - Call urologist for refill on medications - Steroids as prescribed to help with pain - Muscle relaxer as prescribed to help with spasms - Do not take diclofenac while taking prednisone - GO to ER with loss of bowel/ bladder function, increased numbness/ pain - Billing Disposition and Condition Condition: FAIR Disposition: Home
== END 2018-07-20 13:08 | disposition home or self-care (01) ==
LOC: UCEAST 10:25
DX: M54.5 Low back pain (principal); M62.830 Muscle spasm of back; R20.0 Anesthesia of skin; N40.0 Benign prostatic hyperplasia without lower urinary tract symptoms; Z76.0 Encounter for issue of repeat prescription; F17.210 Nicotine dependence, cigarettes, uncomplicated
CPT/HCPCS: 99212; G0463

== ENCOUNTER 2018-07-27 17:20 | Emergency (ER) | payer SELFPAY ==
--- OUTSIDE RECORDS SUMMARY | 2018-07-27 17:54 | XMS REPORT | Continuity of Care Document ---
:1970 External Reference #:[id number] Author Name Freddie Griffin N.P. Address [address] [place] [id number] Care Team Providers Name Role Phone Freddie Griffin N.P. Care Team Information Mental Health Orderly Unavailable Payers Date Identification Numbers Payment Provider Subscriber Effective: 2016 Policy Number: [id number] [facility] Manuel Harrell Expires: 2018 PayID: [id number] [address] [address] [place] [phone] Effective: 2013 Policy Number: [id number] [facility] Manuel Harrell Expires: 2015 PayID: [id number] [address] [address] [place] [id number] Effective: 2007 Policy Number: [id number] [facility] Manuel Harrell Expires: 2013 Group Number: [id number] [address] [address] PayID: [id number] [place] [phone] Advance Directives Description No Information Available Problems Active Problems Provider Date Chronic low back pain Freddie Griffin, N.PEdilson Onset: 01/03/2015 Foot pain Freddie Griffin, N.P. 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 Capsules Losartan Potassium take one tablet 90tabs Freddie Griffin, 10/30/2017 50mg by mouth every N.P. Tablets day Diclofenac Sodium 1 by mouth every EliasFreddie davis, 06/17/2017 75mg day N.P. Tablets Loratadine 1 by mouth every 30tabs Freddie Griffin, 06/17/2016 10mg Tablets day N.P. Proair HFA 2 puffs four 1Can Freddie Griffin, 05/30/2016 108(90Base) times a day as N.P. mcg/Act Aerosol needed History Medications Losartan Potassium Take 1 Tablet 90tabs Freddie Griffin, 11/27/2017 - 25mg Daily N.P. 05/21/2018 Tablets Losartan Potassium Take 1 Tablet 90tabs Freddie Griffin, 08/28/2017 - 25mg Daily N.P. 10/30/2017 Tablets Losartan Potassium 1 by mouth every 30tabs Freddie Griffin, 08/04/2017 - 50mg day N.P. 10/30/2017 Tablets Losartan Potassium 1 by mouth every 90tabs Freddie Griffin, 05/20/2017 - 25mg day N.P. 08/04/2017 Tablets Cefdinir 1 by mouth twice 20caps Freddie Griffin, 05/30/2016 - 300mg Capsules a day x 10 days N.P. 06/17/2016 Prednisone 2 by mouth every 10tabs Freddie Griffin, 05/30/2016 - 20mg Tablets day x 5 days N.P. 06/17/2016 Tamiflu 1 by mouth twice 10caps Freddie Griffin, 05/30/2015 - 75mg Capsules a day x 5 days N.P. 05/30/2016 Losartan Potassium take one tablet 90tabs Freddie Griffin, 03/02/2015 - 25mg by mouth every N.P. 05/30/2016 Tablets morning Benicar 1 po qd 30tabs Freddie Griffin, 03/02/2015 - 20mg Tablets N.P. 03/02/2015 Zithromax Z-Al as directed 1tabs Freddie Griffin, 08/01/2014 - 250mg N.P. 08/31/2014 Tablets Physical Therapy eval and treat Freddie Griffin, 05/04/2014 - low back pain Dx: N.P. 05/30/2016 lumbago/sciatica Cyclobenzaprine HCL take one tablet 60tabs Freddie Griffin, 04/26/2014 - 10mg by mouth three N.P. 05/30/2016 Tablets times a day Mobic 1 by mouth every 30tabs Freddie Griffin, 03/15/2014 - 7.5mg Tablets day N.P. 05/30/2016 Ibuprofen 1 by mouth four 40tabs Freddie Griffin, 02/09/2014 - 800mg Tablets times a day with N.P. 04/26/2014 food Zithromax Z-Al as directed 1tabs Freddie Griffin, 04/03/2009 - 250mg N.P. 02/09/2014 Tablets Avelox 1 po qd x 10 days samples Freddie Griffin, 01/02/2009 - 400mg Tablets N.P. 04/03/2009 Cheratussin ac 1 teaspoon every 236ml Freddie Griffin, 12/27/2008 - 100-10mg/5ML 4-6 h prn cough N.P. 02/09/2014 Syrup Work Note Patient was Freddie Griffin, 12/27/2008 - evaluated in our N.P. 05/30/2016 office today Diclofenac Sodium Unknown - 50mg 06/17/[address] Membreno CPT Code Status Date Vaccine Lot # [id number] Given 06/17/2016 Influenza Vac, Quadrivalent, Split, 0.5mL Dosage, [id number] Im Use 23845 Given 01/03/2015 Influenza Vac, Quadrivalent, Split, 0.5mL Dosage, Im Use [id number] Given 01/06/2014 Afluria Or Fluvirin Flu Vac Intramuscular [id number] Given 01/02/2009 Tdap (Adacel) Ages 7 And Above Only [id number] Given 01/02/2009 Afluria Or Fluvirin Flu Vac Intramuscular [id number] Refused 01/16/2018 Influenza Vac, Quadrivalent, Split, 0.5mL Dosage, Im Use Vital Signs Date Vital Result Comment 07/13/2018 11:36am Body Temperature 98.8 F Weight 254.12 lb Heart Rate 95 /min BP Systolic 132 mmHg BP Diastolic 78 mmHg O2 % BldC Oximetry 94 % 05/21/2018 12:54pm Body Temperature 98.8 F Weight 257.25 lb Heart Rate 77 /min BP Systolic 120 mmHg BP Diastolic 64 mmHg O2 % BldC Oximetry 95 % 10/30/2017 10:53am Body Temperature 98.2 F Weight 273.38 lb Heart Rate 88 /min BP Systolic 139 mmHg BP Diastolic 90 mmHg O2 % BldC Oximetry 94 % 08/04/2017 10:12am Body Temperature 98.8 F Weight 264.00 lb Heart Rate 78 /min BP Systolic 136 mmHg BP Diastolic 79 mmHg O2 % BldC Oximetry 94 % 06/17/2017 9:59am Body Temperature 97.6 F Weight 262.00 lb Heart Rate 70 /min BP Systolic 130 mmHg BP Diastolic 90 mmHg O2 % BldC Oximetry 96 % 05/20/2017 10:40am Body Temperature 98.6 F Weight 260.00 lb Heart Rate 91 /min BP Systolic 132 mmHg BP Diastolic 82 mmHg O2 % BldC Oximetry 95 % 06/17/2016 8:23am Body Temperature 97.5 F Weight 240.12 lb Heart Rate 76 /min BP Systolic 130 mmHg BP Diastolic 76 mmHg Height 70 inches 5'10" O2 % BldC Oximetry 97 % BMI (Body Mass Index) 34.5 kg/m2 05/30/2016 9:28am Body Temperature 99.0 F Weight 237.00 lb Heart Rate 72 /min BP Systolic 130 mmHg BP Diastolic 90 mmHg Height 70 inches 5'10" O2 % BldC Oximetry 96 % BMI (Body Mass Index) 34.0 kg/m2 05/30/2015 9:59am Body Temperature 97.7 F Weight 246.38 lb Heart Rate 71 /min BP Systolic 124 mmHg BP Diastolic 86 mmHg O2 % BldC Oximetry 97 % 04/04/2015 1:39pm Body Temperature 97.9 F Weight 258.00 lb Heart Rate 65 /min BP Systolic 137 mmHg BP Diastolic 82 mmHg O2 % BldC Oximetry 96 % 03/02/2015 1:08pm Body Temperature 98.8 F Weight 252.00 lb Heart Rate 95 /min BP Systolic 150 mmHg BP Diastolic 96 mmHg O2 % BldC Oximetry 95 % 02/01/2015 8:39am Body Temperature 97.9 F Weight 258.00 lb Heart Rate 86 /min BP Systolic 152 mmHg BP Diastolic 100 mmHg O2 % BldC Oximetry 96 % 01/03/2015 10:24am Body Temperature 98.6 F Weight 250.25 lb Heart Rate 70 /min BP Systolic 147 mmHg BP Diastolic 95 mmHg O2 % BldC Oximetry 97 % 09/26/2014 9:52am Body Temperature 98.6 F Weight 252.50 lb Heart Rate 93 /min BP Systolic 120 mmHg BP Diastolic 90 mmHg O2 % BldC Oximetry 94 % 08/31/2014 9:11am Body Temperature 98.8 F Weight 260.12 lb Heart Rate 99 /min BP Systolic 124 mmHg BP Diastolic 86 mmHg O2 % BldC Oximetry 97 % 08/01/2014 7:46am Body Temperature 98.4 F Weight 259.38 lb Heart Rate 105 /min BP Systolic 132 mmHg BP Diastolic 84 mmHg O2 % BldC Oximetry 96 % 07/04/2014 11:05am Body Temperature 99.3 F Weight 262.00 lb Heart Rate 85 /min BP Systolic 140 mmHg BP Diastolic 86 mmHg O2 % BldC Oximetry 97 % 06/21/2014 7:57am Body Temperature 97.3 F Weight 259.50 lb Heart Rate 104 /min BP Systolic 120 mmHg BP Diastolic 86 mmHg O2 % BldC Oximetry 96 % 05/31/2014 8:49am Body Temperature 96.9 F Weight 257.38 lb Heart Rate 80 /min BP Systolic 144 mmHg BP Diastolic 92 mmHg O2 % BldC Oximetry 96 % 05/18/2014 9:02am Body Temperature 97.9 F Weight 257.38 lb Heart Rate 91 /min BP Systolic 132 mmHg BP Diastolic 84 mmHg O2 % BldC Oximetry 95 % 05/04/2014 9:30am Body Temperature 98.2 F Weight 255.12 lb Heart Rate 81 /min BP Systolic 128 mmHg BP Diastolic 94 mmHg O2 % BldC Oximetry 95 % 04/26/2014 10:33am Body Temperature 97.6 F Weight 252.38 lb Heart Rate 90 /min BP Systolic 146 mmHg BP Diastolic 88 mmHg O2 % BldC Oximetry 97 % 02/23/2014 9:48am Weight 242.25 lb Heart Rate 74 /min BP Systolic 112 mmHg BP Diastolic 76 mmHg O2 % BldC Oximetry 97 % 02/09/2014 10:26am Body Temperature 97.7 F Weight 244.50 lb Heart Rate 92 /min BP Systolic 130 mmHg BP Diastolic 76 mmHg Height 69 inches 5'9" O2 % BldC Oximetry 96 % BMI (Body Mass Index) 36.1 kg/m2 04/03/2009 10:58am Body Temperature 97.7 F Weight 228.00 lb Heart Rate 72 /min BP Systolic 112 mmHg BP Diastolic 78 mmHg O2 % BldC Oximetry 92 % 01/02/2009 11:08am Body Temperature 97.8 F Weight 225.00 lb Heart Rate 80 /min BP Systolic 132 mmHg BP Diastolic 82 mmHg 12/27/2008 8:54am Body Temperature 97.9 F Weight 229.00 lb Heart Rate 88 /min BP Systolic 134 mmHg BP Diastolic 80 mmHg O2 % BldC Oximetry 94 % Results Test Date Facility Test Result H/L Range Note Comprehensive Met Panel-[facility] 05/21/2018 [facility] Sodium 142 mmol/L 135- 146 1, 2 Potassium 4.4 mmol/L 3.5-5.2 Chloride# 105 mmol/L 97-110 3 Carbon Dioxide 29 mmol/L 24-34 Glucose 97 mg/dL 70-105 BUN 19 mg/dL 6-26 Creatinine 0.7 mg/dL 0.5-1.4 Calcium 9.4 mg/dL 8.5-10.2 Total Protein 6.0 g/dL 6.0-8.0 Albumin 4.3 g/dL 3.6-4.9 Globulin 1.7 g/dL Low 2.0-3.5 A/G Ratio 2.5 Ratio High 1.0-2.2 Total Bilirubin 0.3 mg/dL 0.1-1.3 Alkaline Phosphatase 41 U/L 24-140 Alt 62 U/L High 3-42 Ast 20 U/L 8-42 Anion Gap 8 mmol/L 5-15 4 Shadia Egfr >60 >60 5 Non Shadia Egfr >60 >60 6 Comprehensive Met Panel-[facility] 06/17/2017 [facility] Sodium 141 mmol/L 135- 146 7, 8 Potassium 5.2 mmol/L 3.5-5.2 Chloride# 104 mmol/L 97-110 9 Carbon Dioxide 31 mmol/L 24-34 Glucose 92 mg/dL 70-105 BUN 15 mg/dL 6-26 Creatinine 0.8 mg/dL 0.5-1.4 Calcium 9.5 mg/dL 8.5-10.2 Total Protein 7.0 g/dL 6.0-8.0 Albumin 4.6 g/dL 3.6-4.9 Globulin 2.4 g/dL 2.0-3.5 A/G Ratio 1.9 Ratio 1.0-2.2 Total Bilirubin 0.6 mg/dL 0.1-1.3 Alkaline Phosphatase 41 U/L 24-140 Alt 80 U/L High 3-42 Ast 24 U/L 8-42 Shadia Egfr >60 >60 10 Non Shadia Egfr >60 >60 11 Anion Gap 6 mmol/L 5-15 12 Lipid 06/17/2017 [facility] Cholesterol 158 mg/dL 50-199 Triglycerides 204 mg/dL High 30-200 HDL 63 mg/dL 29-71 13 Chol/ HDL Ratio 2.5 ratio Low 4.0-6.7 VLDL 41 mg/dL High 2-29 LDL (Calc) 54 mg/dL 20-99 14 Laboratory test finding 08/31/2014 [facility] CRP (C-Reactive) 0.09 mg/dL 0.00-0.75 15 Esr 1 mm/hr 0-15 CBC With Auto Diff 08/31/2014 [facility] WBC 6.7 K/uL 4.1-11.0 RBC 5.56 M/uL 4.60-6.10 Hemoglobin 17.0 gm/dL 13.5-18.0 Hematocrit 50.2 % 41.0-53.0 MCV 90.3 fL 80.0-97.0 MCH 30.6 pg 27.0-32.0 MCHC 33.9 g/dL 32.0-36.0 RDW 13.4 % 11.5-14.5 PLT Count 277 K/ul 140-400 Neutrophil 59.2 % 35.0-75.0 Lymphocyte 28.3 % 16.0-52.0 Monocyte 9.5 % 2.0-10.0 Eosinophil 2.4 % 0.0-5.0 Basophil 0.6 % 0.0-4.0 Abs Neutrophils 4.0 K/uL 2.1-8.0 Abs Lymphocytes 1.9 K/uL 0.8-5.5 Abmon 0.6 K/uL 0.1-1.0 Abs Eosinophils 0.2 K/uL 0.0-0.5 Abs Basophils 0.0 K/uL 0.0-0.3 Laboratory test finding 08/31/2014 [facility] TSH 1.80 uIU/mL 0.35-4.94 Laboratory test finding 08/31/2014 [facility] Lyme Igm/Igg AB NEGATIVE (Neg ) 16 1 This sample is drawn by:ss/[email or web address] 2 Updated reference range on new analyzer 3 Updated reference range on new analyzer 4 Updated Reference Range 5 Concerning GFR Guidelines for Americans: Normal function or mild renal disease, if clinically at risk: >/=60 mL/min Moderately decreased: 30-59 Severely decreased: 15-29 Renal failure: <15 6 Concerning GFR Guidelines: Normal function or mild renal disease, if clinically at risk: >/=60 mL/min Moderately decreased: 30-59 Severely decreased: 15-29 Renal failure: <15 Glomerular Filtration Rate (GFR) is estimated based on the MDRD equation, which assumes a steady state for creatinine as recommended by the National Kidney Disease Education Program in conjunction with the National Institutes of Health and the National Kidney Foundation. Clinical conditions in which it may be necessary to measure GFR by using clearance methods include extremes of age and body size, severe malnutrition or obesity, diseases of skeletal muscle, paraplegia or quadriplegia, vegetarian diet, rapidly changing kidney function, and calculation of the dose of potentially toxic drugs that are excreted by the kidneys. 7 This sample is drawn by:[email or web address] 8 Updated reference range on new analyzer 9 Updated reference range on new analyzer 10 Concerning GFR Guidelines for Americans: Normal function or mild renal disease, if clinically at risk: >/=60 mL/min Moderately decreased: 30-59 Severely decreased: 15-29 Renal failure: <15 11 Concerning GFR Guidelines: Normal function or mild renal disease, if clinically at risk: >/=60 mL/min Moderately decreased: 30-59 Severely decreased: 15-29 Renal failure: <15 Glomerular Filtration Rate (GFR) is estimated based on the MDRD equation, which assumes a steady state for creatinine as recommended by the National Kidney Disease Education Program in conjunction with the National Institutes of Health and the National Kidney Foundation. Clinical conditions in which it may be necessary to measure GFR by using clearance methods include extremes of age and body size, severe malnutrition or obesity, diseases of skeletal muscle, paraplegia or quadriplegia, vegetarian diet, rapidly changing kidney function, and calculation of the dose of potentially toxic drugs that are excreted by the kidneys. 12 Updated Reference Range -2017 13 Per NCEP ATP III Guidelines: Results lower than 40 mg/dL are suggestive of increased risk for coronary artery disease. Results > or=to 60 mg/dL are considered a negative risk factor. 14 Per NCEP ATP III Guidelines: Normal Population <130 Patients with medical conditions: CHD/DM Optimal: <100 Borderline high: 130-159 High: 160-189 Very high: >189 15 This sample is drawn by:KD/VEHICLE GLASS TECHNICIAN 16 A Negative serologic test for Lyme Disease indicates no serologic evidence of infection with B burgdorferi at the time this specimen was collected. A repeat specimen should be collected in 2 to 4 weeks if clinically indicated. Unless otherwise specified, testing performed by [facility] [address] [place] [address] Procedures Date Code Description Status 05/30/2015 23830 Measure Blood Oxygen Level Single Determination Completed 01/03/2015 02962 Admin Of Inj (Therapeutic Phrophylactic Or Diagnostic Subq Completed Inj 08/01/2014 73604 Measure Blood Oxygen Level Single Determination Completed 01/02/2009 98910 Admin Of Inj (Therapeutic,Prophylactic Or Diagnostic Subq Completed Or Intr Encounters Type Date Location Provider Dx Diagnosis Office Visit 07/13/2018 Freddie Lambert, M54.42 Lumbago with 11:45a N.P. sciatica, LEFT side I10 Essential (primary) hypertension Z13.31 Encounter for screening for depression Office Visit 05/21/2018 1:00p Freddie Lambert, Nitza0 Essential ( primary) N.P. hypertension Office Visit 10/30/2017 10:45a Freddie Lambert I10 Essential ( primary) N.P. hypertension M25.511 Pain in RIGHT shoulder Office Visit 08/04/2017 10:15a Freddie Lambert, Nitza0 Essential ( primary) N.P. hypertension M25.511 Pain in RIGHT shoulder Office Visit 06/17/2017 10:00a Freddie Lambert, I10 Essential ( primary) N.P. hypertension Z13.220 Encounter for screening for lipoid disorders M79.672 Pain in LEFT foot Office Visit 05/20/2017 10:45a Freddie Lambert, I10 Essential ( primary) N.P. hypertension Office Visit 06/17/2016 8:30a Freddie Lambert, Z23 Encounter for N.P. immunization R05 Cough Office Visit 05/30/2016 9:45a Freddie Lambert, J20.9 Acute bronchitis, N.P. unspecified R05 Cough Office Visit 05/30/2015 9:45a Freddie Lambert, B34.9 Viral infection, N.P. unspecified R05 Cough Office Visit 04/04/2015 2:00p Freddie Lambert, M54.30 Sciatica, N.P. unspecified side M54.5 Low back pain I10 Essential (primary) hypertension Office Visit 03/02/2015 1:15p Freddie Lambert, N.P. M54.5 Low back pain M54.30 Sciatica, unspecified side Office Visit 02/01/2015 9:00a Freddie Lambert, M54.5 Low back pain N.P. Office Visit 01/03/2015 10:30a Freddie Lambert, M54.5 Low back pain N.P. Office Visit 09/26/2014 9:45a Freddie Lambert, 719.89 Joint Disorder N.P. Other Spec Multiple Sites 724.2 Lumbago Office Visit 08/31/2014 9:45a Freddie Lambert, 719.89 Joint Disorder N.P. Other Spec Multiple Sites 780.79 Malaise And Fatigue Other Office Visit 08/01/2014 8:00a Freddie Lambert, N.P. 724.2 Lumbago 466.0 Bronchitis Acute 786.2 Cough Office Visit 07/04/2014 11:30a Freddie Lambert, N.P. 724.2 Lumbago 724.3 Sciatica Office Visit 06/21/2014 8:00a Freddie Lambert, N.P. 724.3 Sciatica 724.2 Lumbago Office Visit 05/31/2014 9:00a Freddie Lambert, N.P. 724.2 Lumbago 724.3 Sciatica Office Visit 05/18/2014 9:00a Freddie Lambert, N.P. 724.2 Lumbago 724.3 Sciatica Office Visit 05/04/2014 9:30a Freddie Lambert, N.P. 724.2 Lumbago 724.3 Sciatica Office Visit 04/26/2014 10:45a Freddie Lambert, N.P. 724.2 Lumbago 724.3 Sciatica Office Visit 02/23/2014 10:00a Freddie Lambert, 604.99 Orchitis & N.P. Epididymitis Other Office Visit 02/09/2014 10:30a Freddie Lambert, V70.9 Examination General N.P. Medical Unspec Office Visit 04/03/2009 11:30a Freddie Lambert, 466.0 Bronchitis Acute N.P. Office Visit 01/02/2009 11:00a Freddie Lambert, 486 Pneumonia Organism N.P. Unspec V04.89 Need For Prophylactic Vaccination & Inoculation Other Virus V04.81 Need For Prophylactic Vaccination & Inoculation/Influenza V06.1 Lhdscxgeqs-Xyobnvf-Kbakkhpp Combined (DTaP) Office Visit 12/27/2008 8:30a Freddie Lambert, 486 Pneumonia Organism N.P. Unspec Plan of Treatment 07/13/2018 - Freddie Griffin, N.P.M54.42 Lumbago with sciatica, LEFT sideComments:meds as rx'd, ROM stretching as discussed f/u MRI [id number] Essential (primary) hypertensionComments: stable with current meds. Cont same pt inst to monitor B/P at home/work 2-3 times per week and report abngoal: < 140/90Z13.31 Encounter for screening for depressionComments:denies increased feelings depression/anxiety at this time
[2018-07-27 18:10] VITALS: BP 143/72
--- NOTE | 2018-07-27 18:12 | UC ---
Back Pain HPI - HPI Summary HPI Summary: 48 yo male presents with low back pain. He tells me that for the past 3 weeks he has been having issues with his lower back with pain and numbness radiating down his left leg and into his left groin. He has been seen here at the and by his PCP multiple times for this. He was prescribed flexeril and prednisone, which gave him great pain relief. He had an MRI performed by his PCP and was told he would need to see a surgeon, but was not told of the results of the MRI - per pt. He has not followed up with his PCP in their office since having the MRI about a week ago. He is here today asking for a refill of his flexeril and prednisone. His symptoms have not changed. Denies dysuria, loss of bowel/ bladder control, or saddle anesthesia. - History of Current Complaint Chief Complaint: UCLowerExtremity Stated Complaint: RECKECK-LEFT LEG/FOOT NUMBNESS Time Seen by Provider: 07/27/18 18:12 Hx Obtained From: Patient Severity Initially: Severe Severity Currently: Severe Pain Intensity: 10 Pain Scale Used: 0-10 Numeric - Allergies/Home Medications Allergies/Adverse Reactions: Allergies Allergy/AdvReac Type Severity Reaction Status Date / Time No Known Allergies Allergy Verified 07/27/18 18:10 PMH/Surg Hx/FS Hx/Imm Hx - Additional Past Medical History Additional PMH: BPH Cardiovascular History: Hypertension - Surgical History Surgical History: Yes Surgery Procedure, Year, and Place: Rotator cuff and tendon repair Other Surgical History: Negative: Vasectomy - Family History Known Family History: Positive: Hypertension, Diabetes - Social History Occupation: Employed Full-time Lives: With Family Alcohol Use: None Alcohol Amount: 1 -2 beers Substance Use Type: None Smoking Status (MU): Light Every Day Tobacco Smoker Type: Cigarettes Amount Used/How Often: 6 cigs daily Length of Time of Smoking/Using Tobacco: 5 years Have You Smoked in the Last Year: Yes Review of Systems All Other Systems Reviewed And Are Negative: Yes Constitutional: Positive: Negative Skin: Positive: Negative Respiratory: Positive: Negative Cardiovascular: Positive: Negative Gastrointestinal: Positive: Negative Genitourinary: Positive: Negative Neurovascular: Positive: Negative Musculoskeletal: Positive: Other: - LBP Neurological: Positive: Negative Psychological: Positive: Negative Physical Exam - Summary Physical Exam Summary: GENERAL: NAD. WDWN. No pain distress. SKIN: No rashes, sores, lesions, or open wounds. NECK: Supple. FROM. Nontender. No lymphadenopathy. CHEST: CTAB. No r/r/w. No accessory muscle use. Breathing comfortably and in no distress. CV: RRR. Without m/r/g. Pulses intact. Cap refill <2seconds MSK: Mild TTP over LEFT SI. Pain with flexion and extension of spine. Positive SLR on left for low back pain with radiation. Strength 5/5 B/L LEs including dorsiflexion and plantar flexion. FROM B/L LEs. No edema. NEURO: Alert. Sensations intact B/L LEs L3-S1, but feels decreased on left L4-L5 -S1 compared to right. Reflexes intact PSYCH: Age appropriate behavior. Triage Information Reviewed: Yes Vital Signs: Initial Vital Signs Temp 99.0 F 07/27/18 18:05 Pulse 96 07/27/18 18:05 Resp 16 07/27/18 18:05 BP 143/72 07/27/18 18:05 Pulse Ox 97 07/27/18 18:05 Vital Signs Reviewed: Yes Back Pain Course/Dx - Course Course Of Treatment: Will refill his flexeril. He recently finished his second week of prednisone, therefore I advised him to try and remain off the steroids at this time and will have him take his NSAIDs at home. Will also refer him to a neurosurgeon for further evaluation of his back pain and apparent abnormal MRI. - Differential Dx/Diagnosis Provider Diagnosis: Low back pain radiating down leg Discharge - Sign-Out/Discharge Documenting (check all that apply): Patient Departure All imaging exams completed and their final reports reviewed: No Studies - Discharge Plan Condition: Stable Disposition: HOME Prescriptions: Cyclobenzaprine TAB* [Flexeril 10 MG TAB*] 10 mg PO TID PRN #30 tab PRN Reason: Pain Patient Education Materials: Lumbar Radiculopathy (ED) Referrals: Freddie Griffin NP [Primary Care Provider] - Sidra Martinez MD [Medical Doctor] - As Soon As Possible Additional Instructions: If you develop a fever, shortness of breath, chest pain, new or worsening symptoms - please call your PCP or go to the ED immediately. Your blood pressure was high at todays visit. Please see your primary provider within 4 weeks for recheck and re-evaluation. 1) Please take the diclofenac as directed for your back pain 2) Please call the neurosurgeon at the number below to schedule an appointment to further evaluate your back pain and abnormal MRI - Billing Disposition and Condition Condition: STABLE Disposition: Home - Attestation Statements Provider Attestation: Per institutional requirements, I have reviewed the chart, however, I was not consulted specifically or made aware of this patient by the midlevel provider. I did not personally evaluate, interact with , or disposition this patient.
== END 2018-07-27 18:40 | disposition home or self-care (01) ==
LOC: UCCORT 17:20
DX: M54.5 Low back pain (principal); M79.605 Pain in left leg; N40.0 Benign prostatic hyperplasia without lower urinary tract symptoms; I10 Essential (primary) hypertension; F17.210 Nicotine dependence, cigarettes, uncomplicated
CPT/HCPCS: 99212; G0463

== ENCOUNTER 2018-08-17 08:27 | Emergency (ER) | payer SELFPAY ==
--- OUTSIDE RECORDS SUMMARY | 2018-08-17 08:41 | XMS REPORT | Continuity of Care Document ---
:1970 External Reference #:[id number] Author Name David Worthingtonersten Care Team Providers Name Role Phone Freddie Griffin NP Primary Care Physician Unavailable Payers Date Identification Numbers Payment Provider Subscriber Expires: 2018 Policy Number: [id number] BS Facets Manuel Harrell PayID: [id number] [address] [address] [place] [address] Expires: 2009 Policy Number: [id number] [facility] [address] Manuel Harrell [address] [place] [address] Onset: 2018 Policy Number: Dewey Olsen Manuel Harrell [id number] Group Number: [id number] [address] PayID: [id number] [place], [place] Problems Active Problems Provider Date Closed fracture of metatarsal bone Jaspal Landry MD Onset: 03/19/2017 Injury of shoulder region Steph Singh MD Onset: 05/02/2017 Strain of muscle(s) and tendon(s) of the rotator Steph Singh MD Onset: 05/2017 cuff of right shoulder, subsequent encounter Strain of muscle, fascia and tendon of long head Steph Singh MD Onset: 08/2017 of biceps, right arm, subsequent encounter Disorder of shoulder Steph Singh MD Onset: 06/18/2018 Incomplete rotator cuff tear or rupture of right Steph Singh MD Onset: shoulder, not specified as traumatic Developmental dislocation of joint of shoulder Steph Singh MD Onset: 2017 region Bicipital tenosynovitis Steph Singh MD Onset: 08/21/2017 Family History Date Family Member(s) Observation Comments General Hypertension General Diabetes Siblings 3 Social History Type Date Description Comments Sex Unknown Marital Status Lives With Brother Occupation Unemployed [employer] ETOH Use Denies alcohol use Tobacco Use Start: Unknown Patient is a current smoker, smokes every day Recreational Drug Use Denies Drug Use Tobacco Use Start: Unknown Light tobacco smoker (10 or fewer cigarettes/day) Smoking Status Reviewed: 08/13/18 Light tobacco smoker (10 or fewer cigarettes/day) Exercise Type/Frequency Does not exercise unable Allergies, Adverse Reactions, Alerts Description No Known Drug Allergies Medications Active Medications SIG Qnty Indications Ordering Date Provider Cyclobenzaprine HCL take 1 tablet by 42tabs M51.27 Bari Salcedo, 2018 10mg mouth up to three M.D. Tablets times a day as needed Diclofenac Sodium take 1 tablet 90tabs S46.011D Steph Singh, 05/02/2017 75mg twice a day with Tablets DR food Losartan Potassium [place], 25mg BELKIS Frazier Tablets Tamsulosin HCL 1 by mouth every Unknown 0.4mg day Capsules Loratadine once a day for Unknown 10mg Capsules allergies as needed Cyclobenzaprine HCL 1 by mouth three Unknown 10mg times a day Tablets History Medications Oxycodone-Acetaminophen 1 tab by mouth 20tabs Steph Singh, 07/09/2017 - 5-325mg Tablets every 8 hours 08/08/2017 as needed for pain Cephalexin take 1 by 12tabs Steph Singh, 07/09/2017 - 500mg Tablets mouth four MD 08/31/2017 times a day x 3 days Oxycodone-Acetaminophen 1-2 tabs by Unknown - 5-325mg Tablets mouth every 05/02/2017 4-6 hours as needed for pain Ibuprofen Unknown - 07/30/2018 Tylenol Unknown - 07/30/2018 Proair HFA 2 puffs every Unknown - 108(90Base) mcg/Act Aerosol 4 hours as 08/03/2018 needed Medications Administered in Office Medication SIG Qnty Indications Ordering Provider Date Triamcinolone (Kenalog) Steph Singh MD 06/18/2018 Injection Triamcinolone (Kenalog) Steph Singh MD 06/06/2017 Injection Triamcinolone (Kenalog) Shanel Thrasher PA-C 04/03/2017 Injection Vital Signs Date Vital Result Comment 08/13/2018 1:16pm Height 70 inches 5'10" Weight 270.00 lb BP Systolic 134 mmHg BP Diastolic 80 mmHg Respiratory Rate 18 /min Pain Level 0 BMI (Body Mass Index) 38.7 kg/m2 08/03/2018 9:23am Height 70 inches 5'10" Weight 270.00 lb BP Systolic Sitting 158 mmHg BP Diastolic Sitting 80 mmHg Pain Level 10 BMI (Body Mass Index) 38.7 kg/m2 06/18/2018 12:10pm Height 70 inches 5'10" Weight 270.00 lb Heart Rate 80 /min BP Systolic 134 mmHg BP Diastolic 78 mmHg Respiratory Rate 18 /min Pain Level 6 BMI (Body Mass Index) 38.7 kg/m2 10/31/2017 8:09am Height 70 inches 5'10" Weight 270.00 lb Heart Rate 82 /min Respiratory Rate 14 /min Body Temperature 97.9 F Pain Level 3 BMI (Body Mass Index) 38.7 kg/m2 09/30/2017 9:32am Height 70 inches 5'10" Weight 270.00 lb Heart Rate 74 /min BP Systolic Sitting 124 mmHg BP Diastolic Sitting 80 mmHg Respiratory Rate 16 /min Pain Level 4 BMI (Body Mass Index) 38.7 kg/m2 09/02/2017 9:46am Height 70 inches 5'10" Heart Rate 84 /min BP Systolic 144 mmHg BP Diastolic 90 mmHg Respiratory Rate 16 /min Body Temperature 97.6 F Pain Level 2 08/21/2017 9:18am Height 70 inches 5'10" Weight 255.00 lb BP Systolic 130 mmHg BP Diastolic 80 mmHg Respiratory Rate 18 /min Pain Level 5 BMI (Body Mass Index) 36.6 kg/m2 07/22/2017 8:07am Height 70 inches 5'10" Weight 255.00 lb BP Systolic 128 mmHg BP Diastolic 88 mmHg Respiratory Rate 20 /min Body Temperature 97.9 F Pain Level 6 BMI (Body Mass Index) 36.6 kg/m2 07/04/2017 9:43am Height 70 inches 5'10" Weight 255.00 lb BP Systolic 140 mmHg BP Diastolic 82 mmHg Respiratory Rate 18 /min Pain Level 6 BMI (Body Mass Index) 36.6 kg/m2 06/06/2017 9:06am Height 70 inches 5'10" Weight 255.00 lb BP Systolic 132 mmHg BP Diastolic 88 mmHg Respiratory Rate 18 /min Pain Level 6 BMI (Body Mass Index) 36.6 kg/m2 05/02/2017 9:55am Height 70 inches 5'10" Weight 255.00 lb per pt Heart Rate 72 /min BP Systolic Sitting 166 mmHg Lue reg cuff BP Diastolic Sitting 120 mmHg Lue reg cuff Respiratory Rate 16 /min Body Temperature 98.0 F tymp. R ear O2 % BldC Oximetry 95 % On Ra BMI (Body Mass Index) 36.6 kg/m2 04/03/2017 8:16am Height 70 inches 5'10" Weight 255.00 lb BP Systolic 138 mmHg BP Diastolic 86 mmHg Respiratory Rate 18 /min Pain Level 7 BMI (Body Mass Index) 36.6 kg/m2 04/01/2017 2:38pm Height 70 inches 5'10" Weight 255.00 lb BP Systolic 128 mmHg BP Diastolic 80 mmHg Respiratory Rate 18 /min Body Temperature 98.3 F Pain Level 3 BMI (Body Mass Index) 36.6 kg/m2 03/19/2017 2:15pm Height 70 inches 5'10" Weight 255.00 lb BP Systolic 130 mmHg BP Diastolic 78 mmHg Respiratory Rate 20 /min Pain Level 6 BMI (Body Mass Index) 36.6 kg/m2 Results Test Date Facility Test Result H/L Range Note CBC Auto Diff 07/04/2017 [facility] White Blood 7.9 10^3/uL N 3.5-10.[address] [place] [address] [phone] Red Blood Count 4.94 10^6/uL N 4.0-5.4 Hemoglobin 15.3 g/dL N 14.0-18.0 Hematocrit 45 % N 42-52 Mean Corpuscular Volume 92 fL N 80-94 Mean Corpuscular Hemoglobin 31 pg N 27-31 Mean Corpuscular HGB Conc 34 g/dL N 31-36 Red Cell Distribution Width 14 % N 10.5-15 Platelet Count 263 10^3/uL N 150-450 Mean Platelet Volume 8.2 um3 N 7.4-10.4 Abs Neutrophils 4.8 10^3/uL N 1.5-7.7 Abs Lymphocytes 2.1 10^3/uL N 1.0-4.8 Abs Monocytes 0.8 10^3/uL N 0-0.8 Abs Eosinophils 0.2 10^3/uL N 0-0.6 Abs Basophils 0 10^3/uL N 0-0.2 Abs Nucleated RBC 0 10^3/uL Granulocyte % 60.2 % N 38-83 Lymphocyte % 26.8 % N 25-47 Monocyte % 10.5 % High 0-7 Eosinophil % 1.9 % N 0-6 Basophil % 0.6 % N 0-2 Nucleated Red Blood Cells % 0.1 Basic Metabolic Panel 07/04/2017 [facility] Sodium 141 mmol/L N 139-[address] [place] [address] [phone] Potassium 4.8 mmol/L N 3.5-5.0 Chloride 102 mmol/L N 101-111 Co2 Carbon Dioxide 33 mmol/L High 22-32 Anion Gap 6 mmol/L N 2-11 Glucose 77 mg/dL N 70-100 Blood Urea Nitrogen 17 mg/dL N 6-24 Creatinine 0.94 mg/dL N 0.67-1.17 BUN/Creatinine Ratio 18.1 N 8-20 Calcium 9.8 mg/dL N 8.6-10.3 Egfr Non- 85.3 >60 Egfr 109.7 [...] Kidney failure <15 (or dialysis) Procedures Date Code Description Status 06/18/2018 26752 Inject/Drain Joint/Bursa Major W/O US Completed 07/09/2017 05410 Arthroscopy Shoulder,W/Rotator Cuff Repair Completed 07/09/2017 79308 Arthroscopy Shoulder,W/Rotator Cuff Repair Completed 07/09/2017 46124 Arthroscopy,Shoulder Decompression Of Subacromial Space Completed W/Acromio 07/09/2017 09654 Arthroscopy,Shoulder Decompression Of Subacromial Space Completed W/Acromio 07/09/2017 40526 Arthroscopy Shoulder Debridement Extensive Completed 07/09/2017 70697 Arthroscopy Shoulder Debridement Extensive Completed 07/09/2017 28058 Tenodesis Biceps Long Tendon Completed 07/09/2017 82277 Tenodesis Biceps Long Tendon Completed 06/06/2017 16773 Inject Tendon Sheath Or Ligament Aponeurosis Eg Plantar Completed Fascia 04/03/2017 50197 Inject/Drain Joint/Bursa Major W/O US Completed 03/10/2017 72381 EEG Recording Awake & Drowsy Completed 03/10/2017 33821 ECHO Transthorasic Realtime 2D W Doppler & Color Flow Hosp Completed 03/10/2017 24475 EKG, Interpretation Only Completed Encounters Type Date Location Provider Dx Diagnosis Office Visit 08/03/2018 Neurosurgery Bari Salcedo, M51.27 Other intervertebral 9:50a Services Of Enma Kelley disc displacement, lumbosacral region Office Visit 06/18/2018 Orthopedic Services Steph Singh M75.111 Incomplete 1:00p Of C.M.Samir MAYNARD rotatr-cuff tear/ruptr of r shoulder, not trauma M75.21 Bicipital tendinitis, right shoulder M75.42 Impingement syndrome of left shoulder Office Visit 10/31/2017 8:15a Orthopedic Steph Singh M75.111 Incomplete Services Of rotatr-cuff C.M.A. tear/ruptr of r shoulder, not trauma M75.21 Bicipital tendinitis, right shoulder Z47.89 Encounter for other orthopedic aftercare Office Visit 09/02/2017 Orthopedic Jaspal Landry, S92.335D Nondisp fx of 10:15a Services Of 3rd metatarsal C.M.A. bone, l ft, 7thD S92.325D Nondisp fx of 2nd metatarsal bone, l ft, 7thD Office Visit 07/04/2017 9:45a Orthopedic Steph Singh, S46.011D Strain of Services Of musc/tend the C.M.A. rotator cuff of right shoulder, subs S46.111D Strain of musc/fasc/tend long hd bicep, right arm, subs Office Visit 06/06/2017 Orthopedic Jaspal Landry, S92.335D Nondisp fx of 10:30a Services Of 3rd metatarsal C.M.A. bone, l ft, 7thD S92.325D Nondisp fx of 2nd metatarsal bone, l ft, 7thD Office Visit 06/06/2017 9:15a Orthopedic Steph Singh, S46.011D Strain of Services Of musc/tend the C.M.A. rotator cuff of right shoulder, subs S46.111D Strain of musc/fasc/tend long hd bicep, right arm, subs M25.511 Pain in right shoulder Office Visit 05/02/2017 9:30a Orthopedic Steph Singh, S46.011D Strain of Services Of MD hayes/tend the C.M.A. rotator cuff of right shoulder, subs S46.101A Unsp injury of musc/fasc/tend long hd bicep, right arm, init S46.111D Strain of musc/fasc/tend long hd bicep, right arm, subs Office Visit 05/02/2017 Katherine Landry, S92.335D Nondisp fx of 11:30a Services Of 3rd metatarsal C.M.A. bone, l ft, 7thD S92.325D Nondisp fx of 2nd metatarsal bone, l ft, 7thD Office Visit 04/03/2017 8:00a Orthopedic Steph Singh, M25.511 Pain in right Services Of shoulder C.M.A. S43.421A Sprain of right rotator cuff capsule, initial encounter Office Visit 04/01/2017 Katherine Landry, S92.335A Nondisp fx of 2:00p Services Of third metatarsal C.M.A. bone, left foot, init S92.325A Nondisp fx of second metatarsal bone, left foot, init M75.101 Unsp rotatr-cuff tear/ruptr of right shoulder, not trauma Office Visit 03/19/2017 Orthopedic [facility] Frantz, S92.335A Nondisp fx of 2:00p Services Of Harsh MAYNARD third metatarsal bone, left foot, init Office Visit 03/09/2017 [facility] R55 Syncope and 8:28a Assoc,pc [facility]avo [facility]P. collapse Hospitalists I10 Essential (primary) hypertension S92.335A Nondisp fx of third metatarsal bone, left foot, init Office Visit 06/23/2007 Neurosurgery Russell Flores 722.10 Intervertebral Disc 4:30p Services Of Enma Bear M.D. Displacement Lumbar W/O Myelopathy Office Visit 05/28/2007 Neurosurgery Russell Flores 721.3 Spondylosis Lumbar 3:00p Services Of Enma Bear M.D. W/O Myelopathy 846.0 Sprains & Strains Sacroiliac Region Lumbosacral (Joint)(Liga Plan of Treatment Future Appointment(s):09/17/2018 1:00 pm - Steph Singh MD at [facility]08/13/2018 - Steph Singh, MDM75.42 Impingement syndrome of left shoulder
[2018-08-17 09:05] VITALS: BP 158/92
--- NOTE | 2018-08-17 09:35 | UC ---
Back Pain HPI - HPI Summary HPI Summary: pt reports a hx of chronic low back pain into his L leg from disc disease. he is scheduled for surgery on 08/25/[address] Galaviz. he ran out of his Flexeril and wound like a refill. - History of Current Complaint Chief Complaint: UCBackPain Stated Complaint: LOWER BACK PAIN Time Seen by Provider: 08/17/18 09:26 Hx Obtained From: Patient Timing: Constant Pain Intensity: 10 Associated Signs And Symptoms: Negative: Fever, Weakness, Numbness - LLE, chronic, Abdominal Pain, Flank Pain, Bladder Incontinence, Bowel Incontinence - Risk Factors Epidural Abscess Risk Factors: Negative - Allergies/Home Medications Allergies/Adverse Reactions: Allergies Allergy/AdvReac Type Severity Reaction Status Date / Time No Known Allergies Allergy Verified 08/17/18 09:07 PMH/Surg Hx/FS Hx/Imm Hx - Additional Past Medical History Additional PMH: Disc disease low back with chronic pain psoriasis Cardiovascular History: Hypertension - Surgical History Surgical History: Yes Surgery Procedure, Year, and Place: Rotator cuff and tendon repair Other Surgical History: Negative: Vasectomy - Family History Known Family History: Positive: Hypertension, Diabetes - Social History Alcohol Use: None Alcohol Amount: 1 -2 beers Substance Use Type: None Smoking Status (MU): Light Every Day Tobacco Smoker Type: Cigarettes Amount Used/How Often: 6 cigs daily Length of Time of Smoking/Using Tobacco: 5 years Have You Smoked in the Last Year: Yes Review of Systems All Other Systems Reviewed And Are Negative: Yes Constitutional: Negative: Fever Skin: Positive: Rash - psoriasis Gastrointestinal: Negative: Abdominal Pain Musculoskeletal: Positive: Other: - low back pain Neurological: Positive: Paresthesia - lle, Numbness - lle Physical Exam Triage Information Reviewed: Yes Appearance: Well-Appearing Vital Signs: Initial Vital Signs Temp 97 F 08/17/18 08:55 Pulse 78 08/17/18 08:55 Resp 18 08/17/18 08:55 BP 158/92 08/17/18 08:55 Pulse Ox 98 08/17/18 08:55 Vital Signs Reviewed: Yes Eyes: Positive: Conjunctiva Clear Respiratory: Positive: Lungs clear, No respiratory distress Cardiovascular: Positive: RRR, No Murmur Abdomen Description: Positive: Nontender, No Organomegaly, Soft. Negative: Pulsatile Mass Musculoskeletal: Positive: Other: - Back : no deformity. rom intact but pain L low back. tender L paraspinal mm lumbar region. 5/5 strength, 1+ reflexes and gross sensation to touch is intact. no saddle anesthesia. slow steady gait. Neurological: Positive: Alert Psychological: Positive: Age Appropriate Behavior Skin Exam: Normal Skin: Positive: Rashes - L palm scaley (hx psoriasis) Back Pain Course/Dx - Differential Dx/Diagnosis Differential Diagnosis/HQI/PQRI: Other - no concern for infection, acute abdomen or cauda equina. Provider Diagnosis: Medication refill Discharge - Sign-Out/Discharge Documenting (check all that apply): Patient Departure All imaging exams completed and their final reports reviewed: No Studies - Discharge Plan Condition: Stable Disposition: HOME Prescriptions: Cyclobenzaprine TAB* [Flexeril 10 MG TAB*] 10 mg PO TID PRN #21 tab PRN Reason: Spasms - Back Patient Education Materials: Medicine Refill (ED) Referrals: Freddie Griffin NP [Primary Care Provider] - If Needed Bari Galaviz MD [Medical Doctor] - Additional Instructions: FOLLOW UP WITH DR GALAVIZ SCHEDULED. - Billing Disposition and Condition Condition: STABLE Disposition: Home
== END 2018-08-17 09:54 | disposition home or self-care (01) ==
LOC: UCCORT 08:27
DX: Z76.0 Encounter for issue of repeat prescription (principal); M54.5 Low back pain; G89.29 Other chronic pain; I10 Essential (primary) hypertension; F17.210 Nicotine dependence, cigarettes, uncomplicated; R20.2 Paresthesia of skin
CPT/HCPCS: 36415; 86703; 99212; G0463

== ENCOUNTER 2018-08-22 10:55 | Emergency (ER) | payer OTHER ==
--- OUTSIDE RECORDS SUMMARY | 2018-08-22 11:10 | XMS REPORT | Continuity of Care Document ---
:1970 External Reference #:[id number] Author Name Delores Salazar Care Team Providers Name Role Phone Freddie Griffin NP Primary Care Physician Unavailable Payers Date Identification Numbers Payment Provider Subscriber Effective: 2017 Policy Number: [id number] [facility] Manuel Harrell Expires: 2019 PayID: [id number] [address] Expires: 2018 Policy Number: [id number] [employer] Manuel Harrell PayID: [id number] [address] [address] [place] [address] Expires: 2009 Policy Number: [id number] [facility] [address] Manuel [address] [place] [address] Onset: 2018 Policy Number: Dewey Olsen Manuel Harrell [id number] Group Number: [id number] [address] PayID: [id number] [place], [place] Problems Active Problems Provider Date Closed [...] 75mg twice a day with Tablets DR adams Losartan Potassium [place], 25mg BELKIS Frazier Tablets Tamsulosin HCL 1 [...] Facility Test Result H/L Range Note CBC No Diff 08/18/2018 [facility] White Blood 10.6 10^3/uL N 3.5-10.[address] [place] [address] [phone] Red Blood Count 5.31 10^6/uL N 4.18-5.48 Hemoglobin 16.5 g/dL N 14.0-18.0 Hematocrit 48 % N 42-52 Mean Corpuscular Volume 91 fL N 80-94 Mean Corpuscular Hemoglobin 31 pg N 27-31 Mean Corpuscular HGB Conc 34 g/dL N 31-36 Red Cell Distribution Width 14 % N 10.5-15 Platelet Count 306 10^3/uL N 150-450 Mean Platelet Volume 7.6 fL N 7.4-10.4 Basic Metabolic Panel 08/18/2018 [facility] Sodium 141 mmol/L N 135-[address] [place] [address] [phone] Potassium 4.5 mmol/L N 3.5-5.0 Chloride 105 mmol/L N 101-111 Co2 Carbon Dioxide 30 mmol/L N 22-32 Anion Gap 6 mmol/L N 2-11 Glucose 89 mg/dL N 70-100 Blood Urea Nitrogen 17 mg/dL N 6-24 Creatinine 0.87 mg/dL N 0.67-1.17 BUN/Creatinine Ratio 19.5 N 8-20 Calcium 9.9 mg/dL N 8.6-10.3 Egfr Non- 92.9 >60 Egfr 112.4 >60 1 CBC Auto Diff 07/04/2017 [facility] White Blood 7.9 10^3/uL N 3.5-10.[address] [place] [address] [phone] Red Blood Count 4.94 10^6/uL N 4.0-5.4 [...] Cells % 0.1 Basic Metabolic Panel 07/04/2017 [facility] Sodium 141 mmol/L N 139-[address] [place] [address] [phone] Potassium 4.8 mmol/L N 3.5-5.0 Chloride 102 mmol/L N 101-111 Co2 Carbon Dioxide 33 mmol/L High 22-32 Anion Gap 6 mmol/L N 2-11 Glucose 77 mg/dL N 70-100 Blood Urea Nitrogen 17 mg/dL N 6-24 Creatinine 0.94 mg/dL N 0.67-1.17 BUN/Creatinine Ratio 18.1 N 8-20 Calcium 9.8 mg/dL N 8.6-10.3 Egfr Non- 85.3 >60 Egfr 109.7 >60 2 1 Because ethnic data is not always [...] 15-29 5 Kidney failure <15 (or dialysis) 2 Because ethnic data is not always readily [...] dialysis) Procedures Date Code Description Status 06/18/2018 96345 Inject/Drain Joint/Bursa Major W/O US Completed 07/09/2017 41558 Arthroscopy Shoulder,W/Rotator Cuff Repair Completed 07/09/2017 34992 Arthroscopy Shoulder,W/Rotator Cuff Repair Completed 07/09/2017 84371 Arthroscopy,Shoulder Decompression Of Subacromial Space Completed W/Acromio 07/09/2017 39046 Arthroscopy,Shoulder Decompression Of Subacromial Space Completed W/Acromio 07/09/2017 69863 Arthroscopy Shoulder Debridement Extensive Completed 07/09/2017 38364 Arthroscopy Shoulder Debridement Extensive Completed 07/09/2017 11478 Tenodesis Biceps Long Tendon Completed 07/09/2017 22581 Tenodesis Biceps Long Tendon Completed 06/06/2017 83087 Inject Tendon Sheath Or Ligament Aponeurosis Eg Plantar Completed Fascia 04/03/2017 83893 Inject/Drain Joint/Bursa Major W/O US Completed 03/10/2017 04837 EEG Recording Awake & Drowsy Completed 03/10/2017 04445 ECHO Transthorasic Realtime 2D W Doppler & Color Flow Hosp Completed 03/10/2017 23254 EKG, Interpretation Only Completed Encounters Type Date Location Provider Dx Diagnosis Office Visit 08/03/2018 Neurosurgery Bari Salcedo, M51.27 Other intervertebral 9:50a Services Of Enma Kelley disc displacement, lumbosacral region Office Visit 06/18/2018 Orthopedic Services Steph Singh M75.111 Incomplete 1:00p Of Harsh MAYNARD rotatr-cuff tear/ruptr of r shoulder, not trauma M75.21 Bicipital tendinitis, right shoulder M75.42 Impingement syndrome of left shoulder Office Visit 10/31/2017 8:15a Orthopedic Steph Singh M75.111 Incomplete Services Of MD ramirez-adeline Rowland.MEdilsonAEdilson tear/ruptr of r shoulder, not trauma M75.21 [...] 7thD Office Visit 06/06/2017 9:15a Orthopedic Steph Signh S46.011D Strain of Services Of musc/tend the [...] cuff capsule, initial encounter Office Visit 04/01/2017 Orthopedic Jaspal Landry, S92.335A Nondisp fx of 2:00p Services Of MD juancarlos casillas C.M.A. bone, left foot, init S92.325A Nondisp fx of second metatarsal bone, left foot, init M75.101 Unsp rotatr-cuff tear/ruptr of right shoulder, not trauma Office Visit 03/19/2017 Orthopedic Jaspal Landry, S92.335A Nondisp fx of 2:00p Services Of Harsh MAYNARD third metatarsal bone, left foot, init [facility]28a Assoc,pc Sandra Vo. collapse Hospitalists I10 Essential (primary) hypertension S92.335A [...] Region Lumbosacral (Joint)(Liga Plan of Treatment Future Appointment(s):08/25/2018 10:00 am - Aleta Valenzuela PA-C at [facility]08/25/2018 10:00 am - Bari Salcedo M.D. at [facility]09/17/2018 1:00 pm - Steph Singh MD at [facility]08/13/2018 - Steph Singh, MDM75.42 Impingement syndrome of left shoulder
[2018-08-22 11:34] VITALS: BP 130/85
--- NOTE | 2018-08-22 12:04 | UC ---
Back Pain HPI - HPI Summary HPI Summary: 48 yo male presents requesting refill no his flexeril. He tells me that he has chronic back pain that radiates into his left leg. He was scheduled to have surgery next week by Dr. Salcedo, but at pre-admit testing he tells me that his EKG was abnormal - thus surgery was canceled and he is to f/u with his PCP for clearance next week. He states his pain has not changes. No saddle anesthesia or loss of bowel/bladder control. Flexeril helps "take the edge off" and helps him sleep at night. - History of Current Complaint Chief Complaint: UCLowerExtremity Stated Complaint: LEFT LEG PAIN Time Seen by Provider: 08/22/18 11:58 Hx Obtained From: Patient Onset/Duration: Gradual Onset Timing: Constant Severity Initially: Severe Severity Currently: Severe Pain Intensity: 10 Pain Scale Used: 0-10 Numeric - Allergies/Home Medications Allergies/Adverse Reactions: Allergies Allergy/AdvReac Type Severity Reaction Status Date / Time No Known Allergies Allergy Verified 08/22/18 11:34 PMH/Surg Hx/FS Hx/Imm Hx - Additional Past Medical History Additional PMH: BPH Cardiovascular History: Hypertension - Surgical History Surgical History: Yes Surgery Procedure, Year, and Place: Rotator cuff and tendon repair Other Surgical History: Negative: Vasectomy - Family History Known Family History: Positive: Hypertension, Diabetes - Social History Lives: With Family Alcohol Use: None Alcohol Amount: 1 -2 beers Substance Use Type: None Smoking Status (MU): Light Every Day Tobacco Smoker Type: Cigarettes Amount Used/How Often: 6 cigs daily Length of Time of Smoking/Using Tobacco: 5 years Have You Smoked in the Last Year: Yes Review of Systems All Other Systems Reviewed And Are Negative: Yes Constitutional: Positive: Negative Skin: Positive: Negative Respiratory: Positive: Negative Cardiovascular: Positive: Negative Neurovascular: Positive: Negative Musculoskeletal: Positive: Other: - Back pain Psychological: Positive: Negative Physical Exam - Summary Physical Exam Summary: GENERAL: NAD. WDWN. No pain distress. SKIN: No rashes, sores, lesions, or open wounds. NECK: Supple. FROM. Nontender. No lymphadenopathy. CHEST: CTAB. No r/r/w. No accessory muscle use. Breathing comfortably and in no distress. CV: RRR. Without m/r/g. Pulses intact. Cap refill <2seconds MSK: TTP over lumbar paraspinal muscles. Pain with flexion and extension of spine. Positive SLR left for low back pain with radiation into left leg. Strength 5/5 on right including dorsiflexion and plantar flexion - slightly diminished on left - pt states this is chronic and the reason for his surgery. FROM B/L LEs. No edema. NEURO: Alert. Sensations intact B/L LEs L3-S1. Reflexes intact PSYCH: Age appropriate behavior. Triage Information Reviewed: Yes Vital Signs: Initial Vital Signs Temp 97.9 F 08/22/18 11:28 Pulse 95 08/22/18 11:28 Resp 16 08/22/18 11:28 BP 130/85 08/22/18 11:28 Pulse Ox 97 08/22/18 11:28 Vital Signs Reviewed: Yes Back Pain Course/Dx - Course Course Of Treatment: Will refill his flexeril and have him f/u with his PCP next week for further discussion of pre-op clearance for surgery. - Differential Dx/Diagnosis Provider Diagnosis: Low back pain Discharge - Sign-Out/Discharge Documenting (check all that apply): Patient Departure All imaging exams completed and their final reports reviewed: No Studies - Discharge Plan Condition: Stable Disposition: HOME Prescriptions: Cyclobenzaprine TAB* [Flexeril 10 MG TAB*] 10 mg PO TID PRN #42 tab PRN Reason: Spasms Referrals: Freddie Griffin NP [Primary Care Provider] - Additional Instructions: If you develop a fever, shortness of breath, chest pain, new or worsening symptoms - please call your PCP or go to the ED immediately. Please follow up with your primary doctor as soon as possible to discuss your surgery - Billing Disposition and Condition Condition: STABLE Disposition: Home - Attestation Statements Provider Attestation: Per institutional requirements, I have reviewed the chart, however, I was not consulted specifically or made aware of this patient by the midlevel provider. I did not personally evaluate, interact with , or disposition this patient.
== END 2018-08-22 12:12 | disposition home or self-care (01) ==
LOC: UCCORT 10:55
DX: M54.5 Low back pain (principal); I10 Essential (primary) hypertension; G89.29 Other chronic pain; F17.210 Nicotine dependence, cigarettes, uncomplicated
CPT/HCPCS: 99211; G0463

== ENCOUNTER 2018-08-30 12:55 | Emergency (ER) | payer OTHER ==
[2018-08-30 13:37] VITALS: BP 127/79
--- NOTE | 2018-08-30 14:26 | UC ---
Back Pain HPI - HPI Summary HPI Summary: 48 yo male know left sciatica who is awaiting surgury on herniated disc for 2 mos has had numbness bottom of left foot and spasms of left leg symptoms initially improved with flexeril get getter with rest plans to see neuro surgeon tomorrow no bowel or bladder dysfunction no hx DM - History of Current Complaint Chief Complaint: UCLowerExtremity Stated Complaint: LEFT LEG CRAMPING Time Seen by Provider: 08/30/18 13:57 Hx Obtained From: Patient Onset/Duration: Gradual Onset Timing: Constant, Lasting Weeks Severity Initially: Severe Severity Currently: Severe Pain Intensity: 10 Pain Scale Used: 0-10 Numeric Back Pain: Is Discrete @ - lower badk, Radiates To - left leg Character: Sharp, Aching, Burning Aggravating Factor(s): Movement Alleviating Factor(s): Rest Associated Signs And Symptoms: Positive: Numbness - left foot (dorsum). Negative: Swelling, Redness, Bruising, Fever, Weakness Full Body (No Head): 1 - pain 2 - pain/spasm 3 - numb - Allergies/Home Medications Allergies/Adverse Reactions: Allergies Allergy/AdvReac Type Severity Reaction Status Date / Time No Known Allergies Allergy Verified 08/30/18 13:29 PMH/Surg Hx/FS Hx/Imm Hx Previously Healthy: Yes - Surgical History Surgical History: Yes Surgery Procedure, Year, and Place: Rotator cuff and tendon repair Other Surgical History: Negative: Vasectomy - Family History Known Family History: Positive: Hypertension, Diabetes - Social History Alcohol Use: None Alcohol Amount: 1 -2 beers Substance Use Type: None Smoking Status (MU): Light Every Day Tobacco Smoker Type: Cigarettes Amount Used/How Often: 6 cigs daily Length of Time of Smoking/Using Tobacco: 5 years Have You Smoked in the Last Year: Yes Review of Systems All Other Systems Reviewed And Are Negative: Yes Constitutional: Positive: Negative Skin: Positive: Negative Eyes: Positive: Negative ENT: Positive: Negative Respiratory: Positive: Negative Cardiovascular: Positive: Negative Gastrointestinal: Positive: Negative Genitourinary: Positive: Negative Motor: Positive: Negative Neurovascular: Positive: Negative Musculoskeletal: Positive: Arthralgia, Myalgia Neurological: Positive: Numbness Psychological: Positive: Negative Physical Exam Triage Information Reviewed: Yes Appearance: Well-Appearing, No Pain Distress, Well-Nourished Vital Signs: Initial Vital Signs Temp 98.3 F 08/30/18 13:31 Pulse 96 08/30/18 13:31 Resp 17 08/30/18 13:31 BP 127/79 08/30/18 13:31 Pulse Ox 94 08/30/18 13:31 Eyes: Positive: Conjunctiva Clear ENT: Negative: Nasal congestion, TMs normal, Trismus, Muffled voice, Hoarse voice Neck: Positive: Supple Respiratory: Positive: Lungs clear, Normal breath sounds, No respiratory distress, No accessory muscle use Cardiovascular: Positive: RRR, No Murmur Musculoskeletal: Positive: ROM Intact, No Edema, Other: - no edema/no calf tenderness, good distal pulses Neurological: Positive: Alert, Other: - -SLR, dtrs symmetrical, toes downgoing, normal gait Skin Exam: Normal Back Pain Course/Dx - Differential Dx/Diagnosis Provider Diagnosis: Left sided sciatica Discharge - Sign-Out/Discharge Documenting (check all that apply): Patient Departure All imaging exams completed and their final reports reviewed: No Studies - Discharge Plan Condition: Stable Disposition: HOME Prescriptions: Naproxen [Naproxen 500 mg tab] 500 mg PO BID #30 tablet Tizanidine HCl [Zanaflex] 4 mg PO TID #21 tablet Patient Education Materials: Sciatica (ED) Referrals: Freddie Griffin NP [Primary Care Provider] - 5 Days Additional Instructions: see back specialist tomorrow as planned - Billing Disposition and Condition Condition: STABLE Disposition: Home
== END 2018-08-30 14:37 | disposition home or self-care (01) ==
LOC: UCCORT 12:55
DX: M54.32 Sciatica, left side (principal); M79.10 Myalgia, unspecified site; F17.210 Nicotine dependence, cigarettes, uncomplicated
CPT/HCPCS: 99212; G0463

== ENCOUNTER 2018-09-06 07:48 | Emergency (ER) | payer OTHER ==
--- OUTSIDE RECORDS SUMMARY | 2018-09-06 07:55 | XMS REPORT | Continuity of Care Document ---
:1970 External Reference #:[id number] Author Name Lam Connie Care Team Providers Name Role Phone Freddie Griffin NP Primary Care Physician Unavailable Payers Date Identification Numbers Payment Provider Subscriber Effective: 2017 Policy Number: [id number] [facility] Manuel Harrell Expires: 2019 PayID: [id number] [address] Expires: 2018 Policy Number: [id number] [employer] Manuel Harrell PayID: [id number] [address] [address] [place] [address] Expires: 2009 Policy Number: [id number] [facility] [address] Manuel Harrell [address] [place] [address] Onset: 2018 Policy Number: Dewey Olsen Manuel Harrell [id number] Group Number: [id number] [address] PayID: [id number] [place], [place] Problems Active Problems Provider Date Closed [...] (10 or fewer cigarettes/day) Smoking Status Reviewed: 08/31/18 Light tobacco smoker (10 or fewer cigarettes/day) [...] 75mg twice a day with Tablets DR angie Losartan Potassium [place], 25mg Freddie, [employer] Tablets Tamsulosin HCL 1 by mouth every Unknown 0.4mg day Capsules Loratadine once a day for Unknown 10mg Capsules allergies as needed Naproxen 1 tablet with Unknown 500mg Tablets food by mouth twice a day Tizanidine HCL one by mouth Unknown 4mg Capsules every 8 hours as needed muscle spasms History Medications Oxycodone-Acetaminophen 1 tab by mouth [...] mcg/Act Aerosol 4 hours as 08/03/2018 needed Cyclobenzaprine HCL 1 by mouth Unknown - 10mg Tablets three times a 08/31/2018 day Medications Administered in Office Medication SIG Qnty Indications Ordering Provider Date Triamcinolone (Kenalog) Steph Singh MD 06/18/2018 Injection Triamcinolone (Kenalog) Steph Singh MD 06/06/2017 Injection Triamcinolone (Kenalog) Shanel Thrasher PA-C 04/03/2017 Injection Vital Signs Date Vital Result Comment 08/31/2018 2:28pm Height 70 inches 5'10" Weight 270.00 lb BP Systolic Sitting 168 mmHg BP Diastolic Sitting 94 mmHg Pain Level 8 BMI (Body Mass Index) 38.7 kg/m2 08/13/2018 1:16pm Height 70 inches 5'10" Weight [...] H/L Range Note CBC No Diff 08/18/2018 [facility] White Blood 10.6 10^3/uL N 3.5-10.[address] [place] [address] [phone] Red Blood Count 5.31 10^6/uL N 4.18-5.48 [...] fL N 7.4-10.4 Basic Metabolic Panel 08/18/2018 [facility] Sodium 141 mmol/L N 135-[address] [place] [address] [phone] Potassium 4.5 mmol/L N 3.5-5.0 Chloride 105 mmol/L N 101-111 Co2 Carbon Dioxide 30 mmol/L N 22-32 Anion Gap 6 mmol/L N 2-11 Glucose 89 mg/dL N 70-100 Blood Urea Nitrogen 17 mg/dL N 6-24 Creatinine 0.87 mg/dL N 0.67-1.17 BUN/Creatinine Ratio 19.5 N 8-20 Calcium 9.9 mg/dL N 8.6-10.3 Egfr Non- 92.9 >60 Egfr 112.4 >60 1 CBC Auto Diff 07/04/2017 [facility] White Blood 7.9 10^3/uL N 3.5-10.[address] [place] [address] [phone] Red Blood Count 4.94 10^6/uL N 4.0-5.4 [...] Cells % 0.1 Basic Metabolic Panel 07/04/2017 [facility] Sodium 141 mmol/L N 139-145 [address] [place] [address] [phone] Potassium 4.8 mmol/L N 3.5-5.0 Chloride 102 [...] (or dialysis) Procedures Date Code Description Status 06/18/201881145 Inject/Drain Joint/Bursa Major W/O US Completed 07/09/2017 67941 Arthroscopy Shoulder,W/Rotator Cuff Repair Completed 07/09/2017 72086 Arthroscopy Shoulder,W/Rotator Cuff Repair Completed 07/09/2017 59844 Arthroscopy,Shoulder Decompression Of Subacromial Space Completed W/Acromio 07/09/2017 44222 Arthroscopy,Shoulder Decompression Of Subacromial Space Completed W/Acromio 07/09/2017 19780 Arthroscopy Shoulder Debridement Extensive Completed 07/09/2017 82642 Arthroscopy Shoulder Debridement Extensive Completed 07/09/2017 79536 Tenodesis Biceps Long Tendon Completed 07/09/2017 77729 Tenodesis Biceps Long Tendon Completed 06/06/2017 22950 Inject Tendon Sheath Or Ligament Aponeurosis Eg Plantar Completed Fascia 04/03/2017 85341 Inject/Drain Joint/Bursa Major W/O US Completed 03/10/2017 13772 EEG Recording Awake & Drowsy Completed 03/10/2017 23811 ECHO Transthorasic Realtime 2D W Doppler & Color Flow Hosp Completed 03/10/2017 44631 EKG, Interpretation Only Completed Encounters Type Date Location Provider Dx Diagnosis Office Visit 08/13/2018 [facility] Steph Singh M75.42 Impingement syndrome 2:00p Of Harsh MAYNARD of left shoulder Office Visit 08/03/2018 Neurosurgery Bari Salcedo, M51.27 Other intervertebral 9:50a Services Of Enma Kelley disc displacement, lumbosacral region Office Visit 06/18/2018 [facility] Steph Singh, M75.111 Incomplete 1:00p Of [facility] rotatr-cuff tear/ruptr of r shoulder, not trauma M75.21 Bicipital tendinitis, right shoulder M75.42 Impingement syndrome of left shoulder Office Visit 10/31/2017 8:15a Orthopedic Steph Singh, M75.111 Incomplete Services Of rotatr-cuff [facility] tear/ruptr [...] of right shoulder, subs S46.111D Strain of abigail/fasc/tend long hd bicep, right arm, subs Office Visit 06/06/2017 Orthopedic Jaspal Landry, S92.335D Nondisp fx of 10:30a Services Of 3rd metatarsal [facility] bone, l ft, 7thD S92.325D Nondisp fx of 2nd metatarsal bone, l ft, 7thD Office Visit 06/06/2017 9:15a Orthopedic Steph Singh, S46.011D Strain of Services Of MD hayes/tend the [facility] rotator cuff of right shoulder, subs S46.111D Strain of abigail/fasc/tend long hd bicep, right arm, subs M25.511 Pain in right shoulder Office Visit 05/02/2017 9:30a Orthopedic Steph Singh S46.011D Strain of Services Of MD hayes/lucie the [facility] rotator cuff of right shoulder, subs S46.101A Unsp injury of musc/fasc/tend long hd bicep, right arm, init S46.111D Strain of abigail/fasc/tend long hd bicep, right arm, subs Office Visit 05/02/2017 Orthopedic Jaspal Landry, S92.335D Nondisp fx of 11:30a Services Of 3rd jojoal Janett.MEdilsonAEdilson bone, l ft, 7thD S92.325D Nondisp fx of 2nd metatarsal bone, l ft, 7thD Office Visit 04/03/2017 8:00a Orthopedic Steph Singh, M25.511 Pain in right Services Of shoulder Janett.M.AEdilson S43.421A Sprain of right rotator cuff capsule, initial encounter Office Visit 04/01/2017 Orthopedic Jaspal Landry, S92.335A Nondisp fx of 2:00p Services Of third jojoal Janett.M.AEdilson bone, left foot, init S92.325A Nondisp fx of second metatarsal bone, left foot, init M75.101 Unsp rotatr-cuff tear/ruptr of right shoulder, not trauma Office Visit 03/19/2017 Orthopedic Jaspal Landry, S92.335A Nondisp fx of 2:00p Services Of Harsh MAYNARD third metatarsal bone, left foot, init Office Visit 03/09/2017 [facility] Oleg R55 Syncope and 8:28a [facility] I10 Essential (primary) hypertension S92.335A Nondisp [...] Steph Singh MD at [facility]08/31/2018 - Sidra Martinez, MDM51.27 Other intervertebral disc displacement, lumbosacral regionFollow up:RV one week, one month, three months postop
[2018-09-06 07:59] VITALS: BP 151/93
--- NOTE | 2018-09-06 08:21 | UC ---
Back Pain HPI - HPI Summary HPI Summary: 48-year-old male who has chronic back pain from a herniated disc over the past month. He states that he normally has leg numbness and leg pain. He ran out of his muscle relaxant 2 days ago. Yesterday he did a lot of walking and today he has more upper leg pain. He states he recently had an appointment with his back specialist last week however did not request pain medication. He has back surgery scheduled for September 29. He sees his specialist and primary care provider is coming . He denies any worsening of symptoms other than mildly increased upper leg pain as a result of the walking that he did yesterday. He denies any saddle anesthesia. He is requesting a refill of his Tanzidine. - History of Current Complaint Chief Complaint: UCGeneralIllness Stated Complaint: LEG PAIN Time Seen by Provider: 09/06/18 07:58 Hx Obtained From: Patient Onset/Duration: Still Present Timing: Constant Severity Initially: Mild Severity Currently: Mild Pain Intensity: 10 Character: Dull, Aching, Spasmodic Aggravating Factor(s): Lifting, Bending Alleviating Factor(s): Rest Associated Signs And Symptoms: Positive: Negative. Negative: Bladder Incontinence, Bowel Incontinence - Allergies/Home Medications Allergies/Adverse Reactions: Allergies Allergy/AdvReac Type Severity Reaction Status Date / Time No Known Allergies Allergy Verified 09/06/18 08:00 PMH/Surg Hx/FS Hx/Imm Hx Previously Healthy: Yes Cardiovascular History: Hypertension Respiratory History: COPD Other Neurological History: herniated disc over the past month, patient denies any injury. - Surgical History Surgical History: Yes Surgery Procedure, Year, and Place: Rotator cuff and tendon repair Other Surgical History: Negative: Vasectomy - Family History Known Family History: Positive: Hypertension, Diabetes - Social History Alcohol Use: None Alcohol Amount: 1 -2 beers Substance Use Type: None Smoking Status (MU): Light Every Day Tobacco Smoker Type: Cigarettes Amount Used/How Often: 6 cigs daily Length of Time of Smoking/Using Tobacco: 5 years Have You Smoked in the Last Year: Yes Review of Systems All Other Systems Reviewed And Are Negative: Yes Motor: Positive: Negative Neurovascular: Positive: Decreased Sensation Musculoskeletal: Positive: Other: - Patient states he has some upper leg pain from walking a lot yesterday. He has no new numbness or tingling in his extremities nor does he have any saddle anesthesia. Neurological: Positive: Numbness - Patient states this is chronic. Is Patient Immunocompromised?: No Physical Exam Triage Information Reviewed: Yes Appearance: Well-Appearing, No Pain Distress, Well-Nourished Vital Signs: Initial Vital Signs Temp 98.1 F 09/06/18 07:56 Pulse 94 09/06/18 07:56 Resp 16 09/06/18 07:56 BP 151/93 09/06/18 07:56 Pulse Ox 96 09/06/18 07:56 Vital Signs Reviewed: Yes Respiratory: Positive: Lungs clear, Normal breath sounds, No respiratory distress, No accessory muscle use Cardiovascular: Positive: RRR, No Murmur, Pulses Normal, Brisk Capillary Refill Abdomen Description: Positive: Nontender, No Organomegaly, Soft Bowel Sounds: Positive: Present Musculoskeletal: Positive: Strength Intact, ROM Intact, No Edema Neurological: Positive: Alert, Muscle Tone Normal, Other: - Reflexes +1 at the knee. Good peripheral pulses neuro sensation capillary refill. Back Pain Course/Dx - Course Course Of Treatment: Patient moves without difficulty here. He walked in without difficulty. I'm going to refill his prescriptions with a definite follow up with his primary care provider in specialist this week. I did advise him he needs to talk with him about pain control since this is his second time here for requesting medications. - Differential Dx/Diagnosis Provider Diagnosis: Chronic back pain Discharge - Sign-Out/Discharge Documenting (check all that apply): Patient Departure All imaging exams completed and their final reports reviewed: No Studies - Discharge Plan Condition: Fair Disposition: HOME Prescriptions: Naproxen [Naproxen 500 mg tab] 500 mg PO BID PRN #15 tablet PRN Reason: Pain Tizanidine HCl 4 mg PO TID PRN #15 capsule PRN Reason: spasm Patient Education Materials: Chronic Back Pain (DC) Referrals: Freddie Griffin NP [Primary Care Provider] - Additional Instructions: Keep your appointments with your specialist this week and ask him if you can have more pain medication. - Billing Disposition and Condition Condition: FAIR Disposition: Home - Attestation Statements Provider Attestation: Per institutional requirements, I have reviewed the chart, however, I was not consulted specifically or made aware of this patient by the midlevel provider. I did not personally evaluate, interact with , or disposition this patient.
== END 2018-09-06 08:25 | disposition home or self-care (01) ==
LOC: UCCORT 07:48
DX: G89.29 Other chronic pain (principal); M54.9 Dorsalgia, unspecified; Z76.0 Encounter for issue of repeat prescription; M79.659 Pain in unspecified thigh; F17.210 Nicotine dependence, cigarettes, uncomplicated
CPT/HCPCS: 99212; G0463

== ENCOUNTER 2018-10-08 12:48 | Emergency (ER) | payer OTHER ==
[2018-10-08 13:24] VITALS: BP 127/80
--- NOTE | 2018-10-08 14:24 | UC ---
UC General HPI - HPI Summary HPI Summary: Pt presents with request for mediation refills. Pt unable to see PCP and have medications refilled due to recent incarceration. Pt was released 2 days ago. Pt has long hx of back pain and sates he has a "bulging disc" - History of Current Complaint Chief Complaint: UCMedRefill Stated Complaint: MED REFILLS Time Seen by Provider: 10/08/18 14:11 Hx Obtained From: Patient Timing: Constant Pain Intensity: 0 Associated Signs & Symptoms: Positive: Back Pain - Allergy/Home Medications Allergies/Adverse Reactions: Allergies Allergy/AdvReac Type Severity Reaction Status Date / Time No Known Allergies Allergy Verified 10/08/18 13:24 PMH/Surg Hx/FS Hx/Imm Hx Previously Healthy: Yes - Surgical History Surgical History: Yes Surgery Procedure, Year, and Place: Rotator cuff and tendon repair Other Surgical History: Negative: Vasectomy - Family History Known Family History: Positive: Hypertension, Diabetes - Social History Occupation: Unemployed Lives: With Family Alcohol Use: None Alcohol Amount: 1 -2 beers Substance Use Type: None Smoking Status (MU): Light Every Day Tobacco Smoker Type: Cigarettes Amount Used/How Often: 6 cigs daily Length of Time of Smoking/Using Tobacco: 5 years Have You Smoked in the Last Year: Yes - Immunization History Vaccination Up to Date: Yes Review of Systems All Other Systems Reviewed And Are Negative: Yes Constitutional: Positive: Negative Skin: Positive: Negative Eyes: Positive: Negative ENT: Positive: Negative Respiratory: Positive: Negative Cardiovascular: Positive: Negative Gastrointestinal: Positive: Negative Genitourinary: Positive: Negative Motor: Positive: Negative Neurovascular: Positive: Negative Musculoskeletal: Positive: Negative Neurological: Positive: Negative Psychological: Positive: Negative, Anxious Physical Exam Triage Information Reviewed: Yes Appearance: Well-Appearing Vital Signs: Initial Vital Signs Temp 97.7 F 10/08/18 13:18 Pulse 79 10/08/18 13:18 Resp 18 10/08/18 13:18 BP 127/80 10/08/18 13:18 Pulse Ox 97 10/08/18 13:18 Vital Signs Reviewed: Yes Eye Exam: Normal ENT: Positive: Hearing grossly normal Neck exam: Normal Respiratory: Positive: No respiratory distress Musculoskeletal Exam: Normal Neurological Exam: Normal Psychological Exam: Normal Skin Exam: Normal Course/Dx - Course Course Of Treatment: Pt was instructed to make an appointment with PCP as soon as possible. - Differential Dx - Multi-Symptom Differential Diagnoses: Other - medication refill - Diagnoses Provider Diagnosis: Medication refill Discharge - Sign-Out/Discharge Documenting (check all that apply): Patient Departure All imaging exams completed and their final reports reviewed: No Studies - Discharge Plan Condition: Stable Disposition: HOME Prescriptions: Naproxen [Naproxen 500 mg tab] 500 mg PO Q12H PRN #20 tablet PRN Reason: Pain Tizanidine HCl [Zanaflex] 4 mg PO Q8HR PRN #30 tablet PRN Reason: Pain Patient Education Materials: Medicine Refill (ED) Referrals: Freddie Griffin NP [Primary Care Provider] - As Soon As Possible Additional Instructions: Please follow up with your PCP as soon as possible. We have refilled your medications as a courtesy to you however, we can no longer refill them. - Billing Disposition and Condition Condition: STABLE Disposition: Home
== END 2018-10-08 14:31 | disposition home or self-care (01) ==
LOC: UCCORT 12:48
DX: M54.9 Dorsalgia, unspecified (principal); Z76.0 Encounter for issue of repeat prescription; F17.210 Nicotine dependence, cigarettes, uncomplicated
CPT/HCPCS: 99212; G0463

== ENCOUNTER 2020-12-20 05:38 | Observation (INO) ==
[2020-12-20] MEDS ORDERED: Lactated Ringers 1000 ml BAG 1,000 ML IV SCH (06:00)
[2020-12-20] MEDS ORDERED: Buffered Lidocaine 1% SYRIN 1 ml INTRADERM ONE (06:00)
[2020-12-20] MEDS ORDERED: ceFAZolin 2 GM in NS PREMIX 2 GM/100 ML BAG IVPB ONE (06:16)
[2020-12-20] MEDS ORDERED: ceFAZolin 1 GM ADVAN 1 GM ADDV.VIAL IVPB ONE (06:16)
[2020-12-20] MEDS ORDERED: Lidocaine 2% PF 5 ML VIAL ONE (06:48)
[2020-12-20] MEDS ORDERED: fentaNYL 250 mcg/5 ml 50 MCG/ML 5 ml VIAL (250 MCG) ONE (06:48)
[2020-12-20] MEDS ORDERED: Propofol 10 MG/ML 20 ML BTL ONE ×2 (06:48→08:06)
[2020-12-20] MEDS ORDERED: Midazolam 2 mg/2 ml VIAL 1 mg/ml 2 ml VIAL (2 mg) ONE (06:48)
[2020-12-20] MEDS ORDERED: Rocuronium 50 mg VIAL 10 mg/ml 5 ml VIAL (50 mg) ONE ×2 (06:55→09:14)
[2020-12-20] MEDS ORDERED: Sevoflurane BOTTLE ONE (07:01)
[2020-12-20] MEDS ORDERED: ceFAZolin VIAL VIAL ONE (07:08)
[2020-12-20] MEDS ORDERED: Lidocaine 1% w EPI 1:200,000 SDV 30 ML VIAL ONE (07:08)
[2020-12-20] MEDS ORDERED: Ketamine HCL 50 mg/ml 10 ml VIAL (500 MG) ONE ×2 (08:40→08:52)
[2020-12-20] MEDS ORDERED: Ondansetron 4 mg VIAL 2 MG/ML 2 ml VIAL ONE (08:43)
[2020-12-20] MEDS ORDERED: Dexamethasone IV 4 MG/ML VIAL 1 ml VIAL ONE (08:43)
[2020-12-20] MEDS ORDERED: Sugammadex 500 MG/5 ML 5 ml VIAL IV PUSH ONE (08:43)
[2020-12-20] MEDS ORDERED: Acetaminophen IV 1 GM/100ML 100 ML IV ONE (08:50)
[2020-12-20] MEDS ORDERED: Naloxone 0.4 mg VIAL 0.4 mg/ml 1 ml VIAL IV PRN (10:46)
[2020-12-20] MEDS ORDERED: diPHENhydraMINE IV 50 MG/ML 1 ml VIAL (BENADRYL) IV PRN (10:46)
[2020-12-20] MEDS ORDERED: DiMENhydriNATE IV 50 mg/ml 1 ml VIAL IV PUSH PRN (10:46)
[2020-12-20] MEDS ORDERED: fentaNYL 100 mcg/2 ml 50 MCG/ML VIAL ONE (10:49)
[2020-12-20] MEDS ORDERED: diPHENhydraMINE IV 50 MG/ML 1 ml VIAL (BENADRYL) ONE (10:49)
[2020-12-20] MEDS ORDERED: DiMENhydriNATE IV 50 mg/ml 1 ml VIAL ONE (10:49)
[2020-12-20] MEDS: fentaNYL 100 mcg/2 ml 50 MCG/ML VIAL IV PRN ×3 (10:51→11:47)
[2020-12-20] MEDS ORDERED: HYDROcodone/ACETAMIN 5/325 mg TAB PO PRN (11:01)
[2020-12-20] MEDS ORDERED: Ondansetron 4 mg VIAL 2 MG/ML 2 ml VIAL IV PRN (11:01)
[2020-12-20] MEDS: HYDROcodone/ACETAMIN 5/325 mg TAB PO PRN (16:37)
[2020-12-21] MEDS: HYDROcodone/ACETAMIN 5/325 mg TAB PO PRN ×2 (06:01→10:04)
[2020-12-21 07:26] VITALS: BP 116/71
== END 2020-12-21 11:00 | disposition home or self-care (01) ==
LOC: SSU 05:38 → OR 05:38
PROVIDERS: ADMIT Neurological Surgery; ATTEND Neurological Surgery